=== PATIENT | female | born 1930 | race Caucasian/White ===

== ENCOUNTER 2017-05-12 07:23 | Inpatient (IN) | payer MEDICARE, OTHER, MEDICAID ==
[2017-05-12 08:12] LABS: CHLORIDE,CL 98 mmol/L (101-111); SODIUM,NA 137 mmol/L (135-145)
--- NOTE | 2017-05-12 09:09 | EDM.PDOC ---
ED HPI GENERAL MEDICAL PROBLEM - General Chief Complaint: Neuro Symptoms/Deficits Stated Complaint: IN BY AMBULANCE Time Seen by Provider: 05/12/17 07:40 Source of Information: Reports: Patient, Long-Term Records, RN, RN Notes Reviewed History Limitations: Reports: No Limitations - History of Present Illness INITIAL COMMENTS - FREE TEXT/NARRATIVE: Pt presents to the hospital per [facility] from the [facility] with complaint of a possible stroke. Pt is alert and answering questions. She states she slid to the floor and was unable to get herself up. She states she did not hit her head and denies any pain at this time. She denies headache or nausea. She admits to numbness and tingling in the left arm. Onset: Today, Sudden Onset Date: 05/12/17 Onset Time: 06:15 Back Pain Score (Numeric/FACES): 4 - Related Data Allergies Allergy/AdvReac Type Severity Reaction Status Date / Time Penicillins Allergy Other Verified 05/12/17 07:36 Sulfa (Sulfonamide Allergy Other Verified 05/12/17 07:36 Antibiotics) Home Meds: Home Meds Budesonide/Formoterol Fumarate [Symbicort 160-4.5 Mcg Inhaler] 2 puff INH BID [History] Calcitonin,[place],Synthetic [Miacalcin] 1 spray INH DAILY 05/31/16 [History] Cholecalciferol (Vitamin D3) [Vitamin D3] 2 tab PO DAILY 05/31/16 [History] Diltiazem [Cardizem CD] 1 tab PO DAILY 05/31/16 [History] Furosemide [Furosemide] 20 mg PO DAILY 05/31/16 [History] L Acidophil/B Lactis/B Longum [Florajen3] 1 tab PO DAILY 05/31/16 [History] Metoprolol Succinate [Toprol XL] 1 tab PO DAILY 05/31/16 [History] Nitroglycerin [IJP: Nitroglycerin] 1 tab SL ASDIRECTED PRN 05/31/16 [History] Ondansetron HCl [Zofran] 1 tab PO Q8H PRN 05/31/16 [History] Polyethylene Glycol 3350 17 gm PO DAILY 05/31/16 [History] Sennosides/Docusate Sodium [Senna-Docusate Sodium] 1 tab PO BID 05/31/16 [ History] oxyCODONE HCl/Acetaminophen [oxyCODONE-Acetaminophen 5-325] 1 tab PO BID [History] Acetaminophen 500 mg PO Q8H PRN 06/01/16 [History] Magnesium Citrate [Citrate of Magnesia] 1 bottle PO DAILY PRN 06/01/16 [History] Magnesium Hydroxide [Milk of Magnesia] 30 ml PO DAILY PRN 06/01/16 [History] Propylene Glycol/Peg 400 [Systane 0.3-0.4% Eye Drops] 1 drop EYEBOTH QID [History] ALPRAZolam [Alprazolam] 1 tab PO DAILY 05/12/17 [History] Gabapentin [Neurontin] 300 mg PO TID 05/12/17 [History] Vit C/E/Zn/Coppr/Lutein/Zeaxan [Preservision Areds 2 Softgel] 2 tab PO DAILY 03/19 [History] predniSONE [Prednisone] 5 mg PO DAILY 05/12/17 [History] Past Medical History HEENT History: Reports: Impaired Vision, Macular Degeneration, Other (See Below) Other HEENT History: macular degeneration Cardiovascular History: Reports: Afib Respiratory History: Reports: COPD Other Respiratory History: HX OF LUNG CA Gastrointestinal History: Reports: Chronic Constipation, GERD Other Gastrointestinal History: ANOREXIA 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 History: Reports: Urinary Incontinence Other 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 History: 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, Fibroids, , Spontaneous Musculoskeletal History: Reports: Fracture, Osteoporosis Other Musculoskeletal History: POLYMYALGIZ RHEUMATICA; PELVIC RIM FRACTURE, RIGHT CLAVICLE FRACTURE Neurological History: Reports: None Psychiatric History: Reports: Anxiety Endocrine/Metabolic History: Reports: Osteoporosis, Vitamin D Deficiency Hematologic History: Reports: Anemia, Blood Transfusion(s), Iron Deficiency Immunologic History: Reports: Other (See Below) Other Immunologic History: POLIO Oncologic (Cancer) History: Reports: Lung Other Oncologic History: 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 Dermatologic History: Reports: None - Infectious Disease History Infectious Disease History: Reports: Chicken Pox, Measles, Mumps Other Infectious Disease History: POLIO - Past Surgical History Female Surgical History: Reports: Hysterectomy, Salpingo-Oophorectomy, Tubal Ligation, Other (See Below) Neurological Surgical History: Reports: None Oncologic Surgical History: Reports: Lobectomy Social & Family History - Family History Family Medical History: Unobtainable Cardiac: Reports: CAD, GA Musculoskeletal: Reports: Other (See Below) Other Musculoskeletal Family History: MS - Tobacco Use Smoking Status *Q: Never Smoker Second Hand Smoke Exposure: No - Caffeine Use Caffeine Use: Reports: Coffee Other Caffeine Use: AVERAGE OF 2-3 CUPS DAILY - Recreational Drug Use Recreational Drug Use: No ED ROS GENERAL - Review of Systems Review Of Systems: ROS reveals no pertinent complaints other than HPI. ED EXAM, NEURO - Physical Exam Exam: See Below Exam Limited By: No Limitations General Appearance: Alert, WD/WN, No Apparent Distress Eye Exam: Left Eye: Other (upper lid drooping, normal for patient as stated by family), Bilateral Eye: EOMI (Partial gaze ), PERRL Ears: Normal External Exam, Hearing Grossly Normal Nose: Normal Inspection Throat/Mouth: Normal Inspection, Normal Voice, No Airway Compromise Neck: Normal Inspection, Supple, Non-Tender, Full Range of Motion Respiratory/Chest: No Respiratory Distress, Decreased Breath Sounds (left, partial lobectomy ), Crackles (right) Cardiovascular: Normal Peripheral Pulses, No Edema, No Gallop, No JVD, No Murmur , No Rub, Irregularly Irregular GI/Abdominal: Normal Bowel Sounds, Soft, Non-Tender, No Organomegaly, No Distention, No Abnormal Bruit, No Mass, Pelvis Stable (Female) Exam: Deferred Rectal (Female) Exam: Deferred Neurological: Alert, Normal Mood/Affect, Oriented x 3, Other (numbness and tingling to the left arm, drift to the left arm only) Back Exam: Normal Inspection, Full Range of Motion Extremities: Normal Inspection, Non-Tender, No Pedal Edema, Normal Capillary Refill, Limited Range of Motion (left arm) Psychiatric: Normal Affect, Normal Mood Skin Exam: Warm, Dry, Intact, Normal Color, No Rash Course - Vital Signs Last Recorded V/S: Last Vital Signs Temp 98.5 F 05/12/17 07:35 Pulse 68 05/12/17 07:35 Resp 12 05/12/17 07:35 BP 161/66 H 05/12/17 07:35 Pulse Ox 91 L 05/12/17 07:35 - Orders/Labs/Meds Orders: Active Orders 24 hr Category Date Time Status EKG Documentation Completion [RC] STAT Care 05/12/17 07:42 Active Cervical Spine 2V or 3V [CR] Urgent Exams 05/12/17 08:30 Ordered Hand wo Cont Rt [CT] Urgent Exams 05/12/17 07:34 Stop Req Pelvis Min 3V [CR] Urgent Exams 05/12/17 08:30 Ordered Labs: Laboratory Tests 05/12/17 05/12/17 05/12/17 Range/Units 07:42 07:42 07:42 WBC 7.3 (5.0-10.0) 10^3/uL RBC 4.02 L (4.2-5.4) 10^6/uL Hgb 13.6 D (12.0-16.0) g/dL Hct 41.1 (37.0-47.0) % MCV 102.2 H D (80-100) fL MCH 33.8 (27.0-34.0) pg MCHC 33.1 (33.0-35.0) g/dL Plt Count 148 L (150-450) 10^3/uL Neut % (Auto) 59.5 (42.2-75.2) % Lymph % (Auto) 29.8 (20.5-50.1) % [place] % (Auto) 8.8 H (2-8) % Eos % (Auto) 1.8 (1.0-3.0) % Baso % (Auto) 0.1 (0.0-1.0) % PT 9.9 (9.0-12.0) SEC INR 1.0 (0.9-1.2) APTT (22.0-34.0) SEC Sodium 137 (135-145) mmol/L Potassium 3.4 L (3.6-5.0) mmol/L Chloride 98 L (101-111) mmol/L Carbon Dioxide 28.0 (21.0-31.0) mmol/L Anion Gap 14.4 BUN 15 (7-18) mg/dL Creatinine 0.7 (0.6-1.3) mg/dL Est Cr Clr Drug Dosing 37.79 mL/min Estimated GFR (MDRD) > 60 BUN/Creatinine Ratio 21.42 Glucose 91 (74-105) mg/dL Calcium 9.4 (8.4-10.2) mg/dl Total Bilirubin 0.8 (0.2-1.0) mg/dL AST 27 (10-42) IU/L ALT 16 (10-60) IU/L Alkaline Phosphatase 114 (42-121) IU/L Troponin I < 0.02 (0.00-0.02) ng/ml Total Protein 6.0 L (6.7-8.2) g/dl Albumin 3.9 (3.2-5.5) g/dl Globulin 2.1 Albumin/Globulin Ratio 1.86 Urine Color (YELLOW) Urine Appearance (CLEAR) Urine pH (5.0-9.0) Ur Specific [place] (1.005-1.030) Urine Protein (NEGATIVE) Urine Glucose (UA) (NEGATIVE) Urine Ketones (NEGATIVE) Urine Occult Blood (NEGATIVE) Urine Nitrite (NEGATIVE) Urine Bilirubin (NEGATIVE) Urine Urobilinogen (0.2-1.0) mg/dL Ur Leukocyte Esterase (NEGATIVE) Urine RBC /HPF Urine WBC (0-5/HPF) /HPF Ur Epithelial Cells /HPF Urine Bacteria (0-FEW/HPF) /HPF Urine Mucus /LPF 05/12/17 05/12/17 Range/Units 07:42 07:43 WBC (5.0-10.0) 10^3/uL RBC (4.2-5.4) 10^6/uL Hgb (12.0-16.0) g/dL Hct (37.0-47.0) % MCV (80-100) fL MCH (27.0-34.0) pg MCHC (33.0-35.0) g/dL Plt Count (150-450) 10^3/uL Neut % (Auto) (42.2-75.2) % Lymph % (Auto) (20.5-50.1) % [place] % (Auto) (2-8) % Eos % (Auto) (1.0-3.0) % Baso % (Auto) (0.0-1.0) % PT (9.0-12.0) SEC INR (0.9-1.2) APTT 23.8 (22.0-34.0) SEC Sodium (135-145) mmol/L Potassium (3.6-5.0) mmol/L Chloride (101-111) mmol/L Carbon Dioxide (21.0-31.0) mmol/L Anion Gap BUN (7-18) mg/dL Creatinine (0.6-1.3) mg/dL Est Cr Clr Drug Dosing mL/min Estimated GFR (MDRD) BUN/Creatinine Ratio Glucose (74-105) mg/dL Calcium (8.4-10.2) mg/dl Total Bilirubin (0.2-1.0) mg/dL AST (10-42) IU/L ALT (10-60) IU/L Alkaline Phosphatase (42-121) IU/L Troponin I (0.00-0.02) ng/ml Total Protein (6.7-8.2) g/dl Albumin (3.2-5.5) g/dl Globulin Albumin/Globulin Ratio Urine Color Yellow (YELLOW) Urine Appearance Slightly cloudy (CLEAR) Urine pH 7.0 (5.0-9.0) Ur Specific [place] 1.015 (1.005-1.030) Urine Protein Negative (NEGATIVE) Urine Glucose (UA) Negative (NEGATIVE) Urine Ketones Negative (NEGATIVE) Urine Occult Blood Negative (NEGATIVE) Urine Nitrite Negative (NEGATIVE) Urine Bilirubin Negative (NEGATIVE) Urine Urobilinogen 1.0 (0.2-1.0) mg/dL Ur Leukocyte Esterase Trace H (NEGATIVE) Urine RBC 0-5 /HPF Urine WBC 5-10 H (0-5/HPF) /HPF Ur Epithelial Cells Rare /HPF Urine Bacteria Many H (0-FEW/HPF) /HPF Urine Mucus Not seen /LPF - Radiology Interpretation Free Text/Narrative:: Head CT wo contrast: No acute intracerebral abnormality or injury. No acute ischemic infarct or intracerebral bleed. Mild frontoparietal and frontotemporal cerebral atrophy with patchy periventricular leukomalacia in both cerebral hemispheres consistent with chronic underlying small vessel ischemic disease. See rad report Departure - Departure Time of Disposition: 09:18 Disposition: Refer to Observation Condition: Fair Clinical Impression: TIA (transient ischemic attack) Qualifiers: Transient cerebral ischemia type: unspecified Qualified Code(s): G45.9 - Transient cerebral ischemic attack, unspecified - Discharge Information - My Orders Last 24 Hours: My Active Orders 05/12/17 07:34 Hand wo Cont Rt [CT] Urgent 05/12/17 07:42 EKG Documentation Completion [RC] STAT 05/12/17 08:30 Cervical Spine 2V or 3V [CR] Urgent Pelvis Min 3V [CR] Urgent - Assessment/Plan Last 24 Hours: My Active Orders 05/12/17 07:34 Hand wo Cont Rt [CT] Urgent 05/12/17 07:42 EKG Documentation Completion [RC] STAT 05/12/17 08:30 Cervical Spine 2V or 3V [CR] Urgent Pelvis Min 3V [CR] Urgent
[2017-05-12] MEDS ORDERED: Acetaminophen 325 MG Tab PO PRN (09:58)
[2017-05-12] MEDS ORDERED: Magnesium Hydroxide 400 MG/5 ML Susp 30 ML Cup PO PRN (10:03)
[2017-05-12] MEDS ORDERED: Ondansetron 4 MG Tab.DIS PO PRN (10:03)
[2017-05-12] MEDS ORDERED: Magnesium Citrate Solution 296 ML Bottle PO PRN (10:03)
[2017-05-12] MEDS ORDERED: Nitroglycerin 0.4 MG Tab.SL SL PRN (10:23)
[2017-05-12] MEDS ORDERED: Levofloxacin/Dextrose 5%-Water 750 MG in Premix Bag 1 BAG IV ONE (12:00)
[2017-05-12] MEDS: Ondansetron 4 MG Tab.DIS PO PRN (13:28)
[2017-05-12] MEDS: Gabapentin 300 MG Cap PO SCH ×2 (13:29→21:23)
[2017-05-12] MEDS: Polyvinyl Alcohol 1.4% Ophth Soln 15 ML Bottle EYEBOTH SCH ×3 (13:30→21:22)
--- NOTE | 2017-05-12 14:13 | HP ---
CHIEF COMPLAINT: "I had a fall at the assisted living." HISTORY OF PRESENTING ILLNESS: Mrs. Nikole Jones is an 86-year-old female with medical history significant for hypertension; hyperlipidemia; chronic obstructive pulmonary disease; atrial fibrillation, on chronic anticoagulation with Coumadin; polymyalgia rheumatica; vasospastic angina; presents to the ER after having a fall at the assisted living facility. At this time, the patient claims that she was absolutely normal at her baseline function around 6:00 a.m. when the nursing staff came and gave her some pills, after that she did not know what happened, but she slipped and fell onto the floor. She does not remember the events which led to the fall, but after realizing that she was on the floor, she tried to get up on her own, but she could not get up. She felt weak on the left side of the body and called for help and nursing staff came and helped her. EMS was called, and when the EMS went to pick her up, she was noted to have some drooping of the face on the left side and also some mild weakness on the left upper extremity and was brought to the emergency room. After coming to the ER, the patient did not have any further weakness. She had a CT scan of the head which was within normal limits and also had cervical spine x-ray and pelvic x-ray. She denies any chest pains at this time. No shortness of breath. She denied any fevers or chills in the last few days. No nausea, vomiting, or diarrhea in the last few days. No complaints of hematemesis, hematochezia, or melenic stools in the last few days. No cough with sputum in the last few days. No complaints of chest pain. No complaints of shortness of breath at this time. The patient claims that maybe she slipped and fell, rather than having a fall. She denied any similar complaints in the past. While in the room, she is able to walk to the bathroom without any difficulty. The patient denied any history of chest pains on exertion, but has mild dyspnea on exertion. No history of orthopnea or paroxysmal nocturnal dyspnea. The patient denied any history of hematemesis, hematochezia, or melenic stools. Normal bowel and bladder habits otherwise. REVIEW OF SYSTEMS: A complete review of system including skin, ear, nose, and throat, cardiovascular system, respiratory system, gastrointestinal system, genitourinary system, hematology, oncology, neurology, allergy, immunology, constitutional were all evaluated and were negative except for the above-said notes. PAST MEDICAL HISTORY: Significant for: 1. Hypertension. 2. Hyperlipidemia. 3. Chronic obstructive pulmonary disease. 4. Atrial fibrillation, paroxysmal. 5. Chronic anticoagulation. 6. Polymyalgia rheumatica. 7. Vasospastic angina. 8. Anxiety. PAST SURGICAL HISTORY: Significant for: 1. Hysterectomy. 2. Lung lobectomy. 3. Thoracoscopy. 4. Tonsillectomy. 5. Adenoidectomy. 6. Vaginal repair. FAMILY HISTORY: The patient claims that her mom and dad are . No significant family history. SOCIAL HISTORY: The patient denied any history of smoking tobacco. History of occasional alcohol intake. ALLERGIC HISTORY: Noted to have allergies to penicillin and sulfa which cause rash and hives. HOME MEDICATIONS: 1. Pradaxa 75 mg, 2 times a day. 2. Xanax 0.25 mg, 2 times a day as needed for anxiety. 3. Omeprazole 20 mg, 2 times daily. 4. Symbicort inhalation daily. 5. Vitamin D3 capsule daily. PHYSICAL EXAMINATION: Vital Signs: Temperature of 98.5, pulse of 68, blood pressure of 161/66, respiratory rate of 12, saturating at 97% on room air. General Appearance: The patient is well oriented to time, place, and person. Follows commands spontaneously. Cardiovascular System: S1 and S2 heard with normal intensity. Grade 3/6 systolic murmur appreciated. No gallops. Respiratory System: Clear to auscultation bilaterally. No wheeze. No crepitations. Abdomen: Soft. Bowel sounds positive. Nontender. No rigidity. Extremities: No edema in bilateral lower extremities. Neurology: No gross focal neurological deficits. Power of 5/5 in all extremities. Reflexes within normal limits. Pupils equally reactive to light. Extraocular movements stable. The patient has macular degeneration to the left eye. LABORATORY DATA: WBC 7.3, hemoglobin 13.6, hematocrit 41.1, platelet count 148. INR 1. Sodium 137, potassium 3.4, chloride 98, bicarb 28, BUN 15, creatinine 0.7, glucose 91, AST 27, ALT 16, alkaline phosphatase 114. Urinalysis: Negative for nitrites. Trace leukocytes, 5 to 10 wbc's, many bacteria. CT scan of the head did not show any acute pathology except for chronic small vessel ischemic changes. ASSESSMENT: 1. Syncope and collapse. 2. Possible urinary tract infection. 3. Mild weakness on the left side which has resolved at this time. Unsure if the patient had any transient ischemic attack. 4. Paroxysmal atrial fibrillation. 5. Chronic anticoagulation with Pradaxa. 6. Hypertension. 7. Chronic obstructive pulmonary disease. 8. History of anxiety. PLAN: 1. Syncopal episode: The patient presents with a syncopal episode and collapse. Exact etiology not clear. The patient claims that she slipped and fell, but given her chronic atrial fibrillation, the patient will be monitored on the Telemetry Unit. We will get serial cardiac enzymes. She might benefit from getting a 2D echocardiogram and carotid Doppler. She could get this as an outpatient also as there is no emergency need for this studies to be done right away. We will closely follow. If symptoms persist, then one might consider getting them inpatient [facility]. We will have Physical Therapy and Occupational Therapy evaluate and treat the patient in a.m. the patient will be encouraged to ambulate around with assistance and have her on fall precautions while in the hospital. 2. Hypertension, uncontrolled: The patient noted to have elevated blood pressure. The patient is not on any antihypertensive medications for now. We will closely follow and may be initiated beta-radha if needed as she has underlying atrial fibrillation. 3. Chronic obstructive pulmonary disease, remains stable: The patient is noted to have Symbicort inhalation treatment. Continue the same. 4. DVT prophylaxis: The patient is currently on Pradaxa. Continue the same. 5. Possible urinary tract infection. The patient is noted to have trace leukocyte esterase with many bacteria and 5 to 10 wbc's. We will start her on IV ceftriaxone. She is allergic to penicillin and sulfa, so one might consider having her on Cipro at this time. We will obtain urine culture and closely follow the patient. 6. We will check her orthostatic vitals to make sure she is not dehydrating and leading to this fall. 7. Code status: The patient wants to be DNR/DNI. 8. Discussed with ER physician regarding the plan of care. Reviewed the labs and medications. Reviewed the old charts. [facility] /[id number]
[2017-05-12] MEDS ORDERED: Sodium Chloride 0.9% 1,000 ML IV ONE (16:34)
[2017-05-12] MEDS: Sodium Chloride 0.9% 10 ML Syringe FLUSH PRN (17:11)
[2017-05-12] MEDS: Formoterol/Mometasone 200-5 MCG 8.8 GM Inhaler IH SCH (21:21)
[2017-05-12] MEDS: Acetaminophen/oxyCODONE 325-5 MG Tab PO SCH (21:23)
[2017-05-12] MEDS: Acetaminophen 500 MG Tab PO PRN (22:07)
[2017-05-12] MEDS ORDERED: ALPRAZolam 0.5 MG Tab PO SCH (23:45)
[2017-05-13] MEDS ORDERED: ALPRAZolam 0.5 MG Tab PO SCH
[2017-05-13 07:07] LABS: CHLORIDE,CL 100 mmol/L (101-111); SODIUM,NA 137 mmol/L (135-145)
[2017-05-13] MEDS ORDERED: predniSONE 5 MG Tab PO SCH (09:00)
[2017-05-13] MEDS ORDERED: ACIDOPHIL PO SCH (09:00)
[2017-05-13] MEDS ORDERED: B LONGUM PO SCH (09:00)
[2017-05-13] MEDS ORDERED: Furosemide 20 MG Tab PO SCH (09:00)
[2017-05-13] MEDS ORDERED: B LACTIS PO SCH (09:00)
[2017-05-13] MEDS: Gabapentin 300 MG Cap PO SCH ×3 (09:20→20:43)
[2017-05-13] MEDS: Metoprolol Succinate 50 MG Tab.ER PO SCH (09:20)
[2017-05-13] MEDS: Acetaminophen/oxyCODONE 325-5 MG Tab PO SCH ×2 (09:20→20:43)
[2017-05-13] MEDS: Diltiazem 240 MG Cap.CD PO SCH (09:20)
[2017-05-13] MEDS: Lutein/Minerals/Vit A,C & E Tab PO SCH (09:20)
[2017-05-13] MEDS: Calcitonin (Salmon) Nasal Spray 3.7 ML Bottle NAS SCH (09:22)
[2017-05-13] MEDS: Polyvinyl Alcohol 1.4% Ophth Soln 15 ML Bottle EYEBOTH SCH ×4 (09:23→20:43)
[2017-05-13] MEDS: Formoterol/Mometasone 200-5 MCG 8.8 GM Inhaler IH SCH ×3 (09:23→20:38)
[2017-05-13] MEDS: Polyethylene Glycol 3350 Powder 17 GM Packet PO SCH (09:24)
[2017-05-13] MEDS: Ondansetron 4 MG Tab.DIS PO PRN ×2 (09:40→18:17)
--- NOTE | 2017-05-13 14:56 | PN ---
DATE: 05/13/2017 SUBJECTIVE: Mrs. Nikole Blanco is an 86-year-old female with medical history significant for hypertension, hyperlipidemia, chronic obstructive pulmonary disease, atrial fibrillation, on chronic anticoagulation with Coumadin and polymyalgia rheumatica. Admitted with having a fall at assisted living facility. For the last 24 hours, the patient had orthostatic vitals drawn, which were positive and the patient was getting hypotensive on standing up suggestive of possible dehydration. She was treated with IV fluids overnight. She was also noted to have possible urinary tract infection for which she was given Levaquin. She complains of increasing weakness and tiredness. She denies any chest pain. No shortness of breath. No abdominal pain. No nausea. No vomiting. No diarrhea. She continues to feel weak and tired. REVIEW OF SYSTEMS: Cardiovascular, respiratory, gastrointestinal, neurology, and constitutional were all evaluated. PHYSICAL EXAMINATION: Vital Signs: Temperature of 98.8, pulse of 76, respiratory rate of 20, blood pressure of 166/69, and saturating at 95% on 2 L of oxygen. General Appearance: The patient is well oriented to time, place, and person. Follows commands spontaneously. Cardiovascular System: S1, S2 heard with normal intensity. No gallops. Respiratory System: Clear to auscultation bilaterally. No wheeze. No crepitations. Abdomen: Soft. Bowel sounds positive. Nontender. No rigidity. Extremities: No edema in bilateral lower extremities. Neurology: No gross focal neurological deficit. MEDICATIONS: 1. Tylenol 500 mg every 8 hours as needed for pain. 2. Xanax 0.5 mg at bedtime. 3. Vitamin D3 of 4000 units daily. 4. Diltiazem 240 mg daily. 5. Lasix 20 mg daily. 6. Neurontin 300 mg 3 times a day. 7. Milk of magnesia 30 mL daily as needed for constipation. 8. Toprol-XL 50 mg daily. 9. Dulera twice a day. 10.Percocet 5/325 mg twice a day. 11.Prednisone 5 mg daily. 12.Senokot 1 tablet twice a day. LABORATORY DATA: WBC 6.7, hemoglobin 13.7, hematocrit 41.6, and platelet count 132. Sodium 137, potassium 3.6, chloride 100, bicarb 28, BUN 10, creatinine 0.6, and glucose 83. ASSESSMENT: 1. Syncope and collapse. 2. Possible urinary tract infection. 3. Paroxysmal atrial fibrillation. 4. Generalized weakness. 5. Chronic anticoagulation with Pradaxa. 6. Hypertension. 7. Chronic obstructive pulmonary disease. 8. History of anxiety. PLAN: 1. Syncopal episode. The patient was admitted with syncope and collapse. She was noted to be orthostatic positive with low blood pressure. She was treated with IV fluids which have improved her blood pressure. We will recheck an orthostatic blood pressure today and hydrate her as needed. 2. Generalized weakness. The patient continues to feel weak and tired. Unsure if this is resulting from an underlying urinary tract infection. She was given IV Levaquin, we will continue the same. We will follow the blood culture and urine culture and titrate the antibiotics. 3. Hypertension. The patient's blood pressure seems to be in acceptable range. Continue with current antihypertensive medication. Try to avoid any hypotensive episodes. 4. Chronic anticoagulation. Continue the Pradaxa. 5. Chronic obstructive pulmonary disease, remains stable. No wheeze noted on the lung exam. Continue current inhalation treatment. We will have her on incentive spirometer and flutter valve as needed. 6. We will have Physical Therapy and Occupational Therapy evaluate and treat the patient. 7. As the patient is requiring IV antibiotics, IV fluids, and she is still feeling weak and tired, we will change her to inpatient service and we will closely follow with physical therapy and occupational therapy. [facility] /[id number]
--- NOTE | 2017-05-13 15:15 | CR ---
CLINICAL HISTORY: 86-year-old female with cough. INTERPRETATION: Apparent new paratracheal density on the right since 17 January 2016 exam most probabl y reflects patient rotation, i.e., technique but if it all possible recommend repeat upright PA chest as a precaution. Normal cardiac silhouette without cephalization of vascular flow, new signs of alveolar edema or depe ndent pleural effusion. (Surgical clips in the region of the "aortopulmonary window"). Scoliosis and arthritic changes of the spine. Chronic mild bronchial inflammation ("cuffing"). No new lung mass, hilar lymphadenopathy or focal lob ar pneumonia.
--- NOTE | 2017-05-13 17:31 | US ---
Clinical history: 86-year-old female with dizziness, syncope and left-sided weakness. Rule out caroti d artery stenosis. Interpretation: Echogenic atheromatous plaque scattered around the carotid bulbs and into the origin of the internal carotid arteries bilaterally but no hemodynamically significant or surgical stenosis documented by ab normal flow either internal or external carotid artery. Normal antegrade vertebral artery flow present bilaterally. Peak systolic flow velocity right common carotid artery 79 cm/s; right internal carotid artery 82 cm/ s; right external carotid artery 89 cm/s. IC/CC ratio on the right 1.0. Peak systolic flow velocity left common carotid artery 101 cm/s; left internal carotid artery 70 cm/s ; and left external carotid artery 130 cm/s. IC/CC ratio on the left 0.7. CONCLUSION: Atheromatous plaque but no evidence of surgical stenosis.
[2017-05-13] MEDS: Acetaminophen 500 MG Tab PO PRN (19:35)
[2017-05-13] MEDS: ALPRAZolam 0.5 MG Tab PO SCH (20:45)
[2017-05-13] MEDS: Sodium Chloride 0.9% 10 ML Syringe FLUSH PRN (20:52)
[2017-05-14 06:56] LABS: CHLORIDE,CL 96 mmol/L (101-111); SODIUM,NA 135 mmol/L (135-145)
[2017-05-14] MEDS: predniSONE 10 MG Tab PO SCH (08:30)
[2017-05-14] MEDS: Ondansetron 4 MG Tab.DIS PO PRN (08:31)
[2017-05-14] MEDS: Metoprolol Succinate 50 MG Tab.ER PO SCH (08:31)
[2017-05-14] MEDS: Acetaminophen/oxyCODONE 325-5 MG Tab PO SCH ×2 (08:31→20:30)
[2017-05-14] MEDS: Diltiazem 240 MG Cap.CD PO SCH (08:31)
[2017-05-14] MEDS: Gabapentin 300 MG Cap PO SCH ×3 (08:32→20:30)
[2017-05-14] MEDS: Polyvinyl Alcohol 1.4% Ophth Soln 15 ML Bottle EYEBOTH SCH ×4 (08:32→20:27)
[2017-05-14] MEDS: Lutein/Minerals/Vit A,C & E Tab PO SCH (08:32)
[2017-05-14] MEDS: Formoterol/Mometasone 200-5 MCG 8.8 GM Inhaler IH SCH ×2 (08:32→20:27)
[2017-05-14] MEDS: Calcitonin (Salmon) Nasal Spray 3.7 ML Bottle NAS SCH (08:32)
[2017-05-14] MEDS: Polyethylene Glycol 3350 Powder 17 GM Packet PO SCH (08:33)
[2017-05-14] MEDS: Levofloxacin/Dextrose 5%-Water 750 MG in Premix Bag 1 BAG IV SCH (08:37)
[2017-05-14] MEDS ORDERED: Sodium Chloride 0.9% 1,000 ML IV SCH (12:00)
--- NOTE | 2017-05-14 12:33 | PN ---
DATE: 05/14/2017 SUBJECTIVE: Mrs. Karen Agustin is an 86-year-old female with a medical history significant for hypertension; hyperlipidemia; chronic obstructive pulmonary disease; atrial fibrillation, on chronic anticoagulation with Coumadin; and polymyalgia rheumatica, admitted with having a fall at assisted living facility. For the last 24 hours, the patient continues to complain of increasing weakness and tiredness. She is unable to ambulate well without any help. She denies any chest pains. No shortness of breath. Complains of feeling nauseated at times decreasing her oral intake. Denies any abdominal pain. She had a good bowel movement yesterday. She received some IV fluids yesterday. She denies any chest pains or headache. Complains of mild dizziness upon ambulation. REVIEW OF SYSTEMS: Cardiovascular, respiratory, gastrointestinal, neurology, constitutional were all evaluated. PHYSICAL EXAMINATION: Vital Signs: Temperature of 97.8, pulse of 69, blood pressure 135/78, respiratory rate of 20, and saturating at 94% on 2 L of oxygen. General Appearance: The patient is alert and oriented to time, place, and person. Follows commands spontaneously. Cardiovascular system: S1 and S2 heard with normal intensity. No gallops. Respiratory System: Clear to auscultation bilaterally. No wheeze. No crepitations. Abdomen: Soft. Bowel sounds positive. Nontender. No rigidity. Extremities: No edema in the bilateral lower extremities. Neurology: No gross focal neurological deficit. MEDICATIONS: Reviewed. Continue with: 1. Tylenol Extra Strength q.8 hours as needed for pain. 2. Xanax 0.5 mg at bedtime as needed. 3. Vitamin D3 of 4000 units daily. 4. Diltiazem 240 mg daily. 5. Neurontin 300 mg three times a day. 6. Levaquin every 48 hours. 7. Milk of magnesia 30 mL as needed for constipation. 8. Toprol-XL 50 mg daily. 9. MiraLax 17 g p.o. daily. 10.Prednisone 10 mg daily. LABORATORY DATA: Sodium 135, potassium 3.7, chloride 96, bicarb 28. BUN 15, creatinine 0.6, glucose 84. ASSESSMENT: 1. Generalized weakness and debility. 2. Possible urinary tract infection. 3. Syncopal episode. 4. Paroxysmal atrial fibrillation. 5. Chronic anticoagulation with Pradaxa. 6. Hypertension. 7. Chronic obstructive pulmonary disease. 8. History of anxiety. PLAN: 1. Generalized weakness. The patient complains of increasing weakness and tiredness. She was orthostatic hypotensive, so we had to give her some IV fluids. We will give her another 500 mL of normal saline today; see if that helps with her weakness. We will also have her on Ensure as she has poor oral intake and closely follow the patient. 2. Syncopal episode. The patient complains of mild dizziness upon ambulation. This could be resulting from mild dehydration. We will continue with IV fluids for now. 3. Urinary tract infection. The patient noted to have UTI at the time of admission. She is currently on IV Levaquin. Follow with the culture reports. Titrate the antibiotics. 4. Chronic obstructive pulmonary disease, remains stable. Continue with current inhalation treatment. The patient will be encouraged to use incentive spirometer. 5. Polymyalgia rheumatica. The patient has been on chronic steroid therapy. She usually takes 5 mg. We increased that to 10 mg. She was complaining of increasing weakness and tiredness. Continue with current dose of prednisone. 6. Continue with physical therapy and occupational therapy. 7. Patient was on Pradaxa in the past. but review of the chart shows, she is not on any anticoagulation as per Assisted living facility. [facility] /[id number] MTDD
[2017-05-14] MEDS: [UNRECOGNIZED DRUG - REMARK] PO SCH ×2 (13:16→13:17)
[2017-05-14] MEDS: ALPRAZolam 0.5 MG Tab PO SCH (20:32)
[2017-05-15] MEDS: Sodium Chloride 0.9% 10 ML Syringe FLUSH PRN ×2 (01:49→21:56)
[2017-05-15] MEDS: Acetaminophen 500 MG Tab PO PRN (06:35)
[2017-05-15] MEDS: Polyethylene Glycol 3350 Powder 17 GM Packet PO SCH (09:12)
[2017-05-15] MEDS: Lutein/Minerals/Vit A,C & E Tab PO SCH (09:13)
[2017-05-15] MEDS: Diltiazem 240 MG Cap.CD PO SCH (09:13)
[2017-05-15] MEDS: predniSONE 10 MG Tab PO SCH (09:14)
[2017-05-15] MEDS: Metoprolol Succinate 50 MG Tab.ER PO SCH (09:14)
[2017-05-15] MEDS: Acetaminophen/oxyCODONE 325-5 MG Tab PO SCH ×2 (09:15→20:42)
[2017-05-15] MEDS: [UNRECOGNIZED DRUG - REMARK] PO SCH (09:16)
[2017-05-15] MEDS: Formoterol/Mometasone 200-5 MCG 8.8 GM Inhaler IH SCH ×2 (09:17→20:41)
[2017-05-15] MEDS: Gabapentin 300 MG Cap PO SCH ×3 (09:17→20:42)
[2017-05-15] MEDS: Polyvinyl Alcohol 1.4% Ophth Soln 15 ML Bottle EYEBOTH SCH ×4 (09:17→20:42)
[2017-05-15] MEDS: Calcitonin (Salmon) Nasal Spray 3.7 ML Bottle NAS SCH (09:24)
--- NOTE | 2017-05-15 12:46 | PN ---
DATE: 05/15/2017 SUBJECTIVE: Mrs. Karen Agustin is an 86-year-old female with medical history significant for hypertension, hyperlipidemia, chronic obstructive pulmonary disease, atrial fibrillation, chronic anticoagulation with Coumadin, polymyalgia rheumatica, admitted with having falls. For the last 24 hours, the patient continues to complain of increasing weakness and tiredness. She was evaluated by Physical Therapy and Occupational Therapy. She was prescribed Ensure Clear, but still continues to feel weak. She denies any chest pain. No shortness of breath. No abdominal pain. No nausea. No vomiting. No diarrhea. REVIEW OF SYSTEMS: Cardiovascular, Respiratory, Gastrointestinal, Neurology, Constitutional were all evaluated. PHYSICAL EXAMINATION: Vitals Signs: Temperature of 97.9, pulse of 65, blood pressure of 138/49, respiratory rate of 20, saturating at 91% on 1 L of oxygen. General Appearance: The patient is well oriented to time, place, and person. Follows commands spontaneously. Cardiovascular System: S1 and S2 heard with normal intensity. No gallops. Respiratory System: Clear to auscultation bilaterally. No wheeze. No crepitations. Abdomen: Soft. Bowel sounds positive. Nontender. No rigidity. No guarding. No rebound tenderness. Extremities: No edema in bilateral lower extremities. Neurologic: No gross focal neurological deficits. MEDICATIONS: Reviewed. Continue with: 1. Tylenol 500 mg every 8 hours as needed for pain. 2. Xanax 0.5 mg at bedtime. 3. Diltiazem 240 mg daily. 4. Neurontin 300 mg, 3 times a day. 5. Levofloxacin 750 mg every 48 hours. 6. Milk of magnesia as needed. 7. Toprol-XL 50 mg daily. 8. Dulera inhalation twice a day. 9. Nitroglycerin 0.4 mg sublingual as needed for chest pain. 10.Percocet 5/325 mg twice a day. 11.Prednisone 10 mg daily. LABORATORY DATA: No new labs ordered for today. We will order for a CBC and a BMP in a.m. ASSESSMENT: 1. Generalized weakness and generalized debility. 2. Possible urinary tract infection. 3. Presyncopal episode. 4. Paroxysmal atrial fibrillation. 5. Hypertension. 6. Chronic obstructive pulmonary disease. 7. History of anxiety. PLAN: 1. Generalized weakness: The patient continues to have generalized weakness. Initially, she was noted to have possible UTI. She is currently on IV antibiotics. She also received IV fluids, but continues to have this weakness. We will continue with PT/OT. We will also prescribe Ensure and we will closely follow. We will check her orthostatics today to see if she needs more IV fluids. 2. Syncopal episode: The patient was admitted with syncopal episode. She was noted to have orthostatic hypotension, suggestive of possible dehydration, requiring IV fluids. After which, she did not have any further syncopal episode, but we will check orthostatics again to see if she needs more IV fluids today. 3. Urinary tract infection: She is currently on IV Levaquin, awaiting for culture report. Continue current antibiotics. 4. Chronic obstructive pulmonary disease, remains stable: Continue current inhalation treatment. 5. Polymyalgia rheumatica: She has been on chronic steroid therapy. We have increased the prednisone to 10 mg on this admission. Continue the same. 6. Continue PT/OT. 7. Atrial fibrillation: The patient was on Pradaxa in the past, but currently not on any anticoagulation secondary to her frequent falls and increasing the risk for intracranial bleed, so we will hold off any anticoagulation for now. She is not on any Plavix at this time. [facility] /[id number]
[2017-05-15] MEDS: ALPRAZolam 0.5 MG Tab PO SCH (20:42)
[2017-05-16 07:08] LABS: CHLORIDE,CL 100 mmol/L (101-111); SODIUM,NA 136 mmol/L (135-145)
[2017-05-16] MEDS: Metoprolol Succinate 50 MG Tab.ER PO SCH (08:56)
[2017-05-16] MEDS: Gabapentin 300 MG Cap PO SCH ×2 (08:56→13:28)
[2017-05-16] MEDS: Diltiazem 240 MG Cap.CD PO SCH (08:57)
[2017-05-16] MEDS: predniSONE 10 MG Tab PO SCH (08:57)
[2017-05-16] MEDS: Polyvinyl Alcohol 1.4% Ophth Soln 15 ML Bottle EYEBOTH SCH ×2 (08:57→13:28)
[2017-05-16] MEDS: Calcitonin (Salmon) Nasal Spray 3.7 ML Bottle NAS SCH (08:57)
[2017-05-16] MEDS: Lutein/Minerals/Vit A,C & E Tab PO SCH (08:57)
[2017-05-16] MEDS: [UNRECOGNIZED DRUG - REMARK] PO SCH (08:58)
[2017-05-16] MEDS: Acetaminophen/oxyCODONE 325-5 MG Tab PO SCH (08:59)
[2017-05-16] MEDS: Polyethylene Glycol 3350 Powder 17 GM Packet PO SCH (09:00)
[2017-05-16] MEDS: Formoterol/Mometasone 200-5 MCG 8.8 GM Inhaler IH SCH (09:00)
[2017-05-16] MEDS: Sodium Chloride 0.9% 10 ML Syringe FLUSH PRN (09:11)
[2017-05-16] MEDS: Levofloxacin/Dextrose 5%-Water 750 MG in Premix Bag 1 BAG IV SCH (09:12)
[2017-05-16 12:21] VITALS: BP 152/79
[2017-05-16] MEDS: Acetaminophen 500 MG Tab PO PRN (13:27)
--- NOTE | 2017-05-16 13:45 | PCM.DCSUM1 ---
Discharge Summary - Hospital Course Free Text/Narrative:: 86 y/o female with PMH of HTN, COPD, A-fib on Pradaxa, polymyalgia rheumatica, but the spastic angina who presented to the hospital from assisted living facility after falling there. Prior to the fall she was in here usual health status. She remembers she slipped and fell onto the floor but does not remember how and why. She was weak and not able to get up. She mostly felt weak on the left side. She called for nursing staff for help. Nursing staff called EMS who brought her to the hospital. It was reported that she had some left facial drooping and left upper extremity weakness. CT of head on admission did not show acute abnormalities. Cervical spine x-ray and pelvic x-ray were unremarkable. Patient did not have any other symptoms. She denies fever, chills , chest pain, shortness breath, nausea, vomiting, diarrhea, bleeding, any other symptoms or concerns. Her admission physical exam reported no gross focal neurological deficit. Serial cardiac enzymes were unremarkable. Carotid ultrasound showed atheromatous plaque but no evidence of surgical stenosis. Echocardiogram is ordered but not reported yet. Chest x-ray was unremarkable. Admission Laboratory data reported previously 7.3K. Hemoglobin 13.6. Potassium 3.4. Creatinine 0.7. Troponins 0.03. LFTs are unremarkable. UA reported trace leukocyte esterase and 5-10 WBCs with many bacteria. No urine or blood cultures were done. She was started on Levaquin IV. During hospitalization patient main complaint was generalized weakness. During hospitalization she did not have any acute events. Overnight patient denies fever, chills, nausea, vomiting, chest pain, shortness breath, abdominal pain, diarrhea, hospice, insulin, black stool , unilateral weakness/numbness/tingling, discussed pain, difficulty swallowing, any other symptoms or concern. Patient is being followed by physical therapy. Patient would benefit from further physical therapy and addition to swing bed. Will change her Levaquin from IV to oral. Admission diagnoses: Syncope and collapse Possible urinary tract infection Possible transient ischemic attack Proximal atrial fibrillation Chronic anti-coagulation on Pradaxa Hypertension COPD Discharge diagnoses: Fall at assisted living, possible syncope Possible urinary tract infection Possible transient ischemic attack Chronic Proximal atrial fibrillation Chronic anti-coagulation on Pradaxa Chronic essential Hypertension COPD - Discharge Data Discharge Date: 05/16/17 Discharge Disposition: DC/Tfer W/I Hosp To Swing 61 Condition: Fair - Discharge Diagnosis/Problem(s) (1) Fall SNOMED Code(s): 1684556 ICD Code: W19.XXXA - UNSPECIFIED FALL, INITIAL ENCOUNTER Status: Acute Current Visit: No Qualifiers: Encounter type: initial encounter Qualified Code(s): W19.XXXA - Unspecified fall, initial encounter - Discharge Plan Home Medications: Home Meds Budesonide/Formoterol Fumarate [Symbicort 160-4.5 Mcg Inhaler] 2 puff INH BID [History] Calcitonin,[place],Synthetic [Miacalcin] 1 spray INH DAILY 05/31/16 [History] Cholecalciferol (Vitamin D3) [Vitamin D3] 2 tab PO DAILY 05/31/16 [History] Diltiazem [Cardizem CD] 1 tab PO DAILY 05/31/16 [History] Furosemide 20 mg PO DAILY 05/31/16 [History] L Acidophil/B Lactis/B Longum [Florajen3] 1 tab PO DAILY 05/31/16 [History] Metoprolol Succinate [Toprol XL] 1 tab PO DAILY 05/31/16 [History] Nitroglycerin [IJP: Nitroglycerin] 1 tab SL ASDIRECTED PRN 05/31/16 [History] Ondansetron HCl [Zofran] 1 tab PO Q8H PRN 05/31/16 [History] Polyethylene Glycol 3350 17 gm PO DAILY 05/31/16 [History] Sennosides/Docusate Sodium [Senna-Docusate Sodium] 1 tab PO BID 05/31/16 [ History] oxyCODONE HCl/Acetaminophen [oxyCODONE-Acetaminophen 5-325] 2 tab PO Q6H [History] Acetaminophen 500 mg PO Q8H PRN 06/01/16 [History] Magnesium Citrate [Citrate of Magnesia] 1 bottle PO DAILY PRN 06/01/16 [History] Magnesium Hydroxide [Milk of Magnesia] 30 ml PO DAILY PRN 06/01/16 [History] Propylene Glycol/Peg 400 [Systane 0.3-0.4% Eye Drops] 1 drop EYEBOTH QID [History] ALPRAZolam [Alprazolam] 1 tab PO DAILY 05/12/17 [History] Gabapentin [Neurontin] 300 mg PO TID 05/12/17 [History] Vit C/E/Zn/Coppr/Lutein/Zeaxan [Preservision Areds 2 Softgel] 2 tab PO DAILY 03/19 [History] predniSONE [Prednisone] 5 mg PO DAILY 05/12/17 [History] - General Info Date of Service: 05/16/17 - Review of Systems General: Reports: No Symptoms HEENT: Reports: No Symptoms Pulmonary: Reports: No Symptoms Cardiovascular: Reports: No Symptoms Gastrointestinal: Reports: No Symptoms 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: Reports: No Symptoms Musculoskeletal: Reports: No Symptoms Skin: Reports: No Symptoms Neurological: Reports: No Symptoms Psychiatric: Reports: No Symptoms - Patient Data Vitals - Most Recent: Last Vital Signs Temp 36.9 C 05/16/17 11:00 Pulse 66 05/16/17 11:00 Resp 20 05/16/17 11:00 BP 152/79 H 05/16/17 11:00 Pulse Ox 94 L 05/16/17 11:00 Orthostatic Blood Pressure [ 136/87 Standing] Orthostatic Blood Pressure [ 147/78 Sitting] Orthostatic Blood Pressure [ 147/91 Supine] Weight - Most Recent: 41.277 kg I&O - Last 24 hours: Intake & Output 05/15/17 05/16/17 05/16/17 22:59 06:59 14:59 Intake Total 390 400 400 Balance 390 400 400 Lab Results - Last 24 hrs: Laboratory Results - last 24 hr 05/16/17 05/16/17 Range/Units 06:25 06:25 WBC 7.0 (5.0-10.0) 10^3/uL RBC 3.77 L (4.2-5.4) 10^6/uL Hgb 12.7 (12.0-16.0) g/dL Hct 37.7 (37.0-47.0) % MCV 100.0 D (80-100) fL MCH 33.7 (27.0-34.0) pg MCHC 33.7 (33.0-35.0) g/dL Plt Count 150 (150-450) 10^3/uL Sodium 136 (135-145) mmol/L Potassium 3.8 (3.6-5.0) mmol/L Chloride 100 L (101-111) mmol/L Carbon Dioxide 27.0 (21.0-31.0) mmol/L Anion Gap 12.8 BUN 19 H (7-18) mg/dL Creatinine 0.6 (0.6-1.3) mg/dL Est Cr Clr Drug Dosing 44.37 mL/min Estimated GFR (MDRD) > 60 Glucose 84 (74-105) mg/dL Calcium 9.5 (8.4-10.2) mg/dl Med Orders - Current: Current Medications Acetaminophen (Tylenol Extra Strength) 500 mg PO Q8H PRN PRN Reason: Pain Last Admin: 05/15/17 06:35 Dose: 500 mg Alprazolam (Xanax) 0.5 mg PO BEDTIME [facility] Last Admin: 05/15/17 20:42 Dose: 0.5 mg Artificial Tears (Liquitears 1.4% Ophth Soln) 0 ml EYEBOTH QID [facility] Last Admin: 05/16/17 08:57 Dose: 1 drop Calcitonin [place] (Miacalcin Nasal [place]) 0 ml ANA ROSA DAILY [facility] Last Admin: 05/16/17 08:57 Dose: 1 spray Diltiazem HCl (Cardizem Cd) 240 mg PO DAILY [facility] Last Admin: 05/16/17 08:57 Dose: 240 mg Gabapentin (Neurontin) 300 mg PO TID [facility] Last Admin: 05/16/17 08:56 Dose: 300 mg Levofloxacin (Levaquin) 750 mg PO Q48H [facility] Stop: 05/22/17 09:01 Magnesium Citrate (Citrate Of Magnesia) 0 ml PO DAILY PRN PRN Reason: constipation Magnesium Hydroxide (Milk Of Magnesia) 30 ml PO DAILY PRN PRN Reason: Constipation Metoprolol Succinate (Toprol Xl) 50 mg PO DAILY [facility] Last Admin: 05/16/17 08:56 Dose: 50 mg Mometasone Furoate/Formoterol Fumar (Dulera 200-5 Mcg) 0 puff IH BID [facility] Last Admin: 05/16/17 09:00 Dose: Not Given Multivitamins/Minerals (I-Kathryn) 2 each PO DAILY [facility] Last Admin: 05/16/17 08:57 Dose: 2 each Nitroglycerin (Nitrostat) 0.4 mg SL ASDIRECTED PRN PRN Reason: Chest Pain Cholecalciferol ( Vitamin D3) 1000 Unit TabNon-Form Med 0 each PO DAILY [facility] Last Admin: 05/16/17 08:58 Dose: 4 each Ondansetron HCl (Zofran Odt) 4 mg PO Q4H PRN PRN Reason: nausea, able to take PO Last Admin: 05/14/17 08:31 Dose: 4 mg Oxycodone/Acetaminophen (Percocet 325-5 Mg) 1 tab PO BID [facility] Last Admin: 05/16/17 08:59 Dose: 1 tab Polyethylene Glycol (Miralax) 17 gm PO DAILY [facility] Last Admin: 05/16/17 09:00 Dose: Not Given Prednisone (Prednisone) 10 mg PO DAILY@0800 [facility] Last Admin: 05/16/17 08:57 Dose: 10 mg Senna/Docusate Sodium (Senna Plus) 1 tab PO BID [facility] Last Admin: 05/16/17 08:57 Dose: 1 tab Sodium Chloride (Saline Flush) 10 ml FLUSH ASDIRECTED PRN PRN Reason: Keep Vein Open Last Admin: 05/16/17 09:11 Dose: 10 ml Discontinued Medications Acetaminophen (Tylenol) 650 mg PO Q4H PRN PRN Reason: Pain (Mild 1-3)/fever Alprazolam (Xanax) 0.5 mg PO DAILY [facility] Last Admin: 05/13/17 02:19 Dose: Not Given Alprazolam (Xanax) 0.5 mg PO DAILY@1900 [facility] Last Admin: 05/13/17 01:00 Dose: Not Given Furosemide (Lasix) 20 mg PO DAILY [facility] Last Admin: 05/13/17 09:22 Dose: 20 mg Levofloxacin/Dextrose 750 mg/ (Premix) 150 mls @ 100 mls/hr IV ONETIME ONE Stop: 05/12/17 13:29 Last Infusion: 05/12/17 15:25 Dose: Infused Sodium Chloride (Normal Saline) 1,000 mls @ 75 mls/hr IV ONETIME ONE Stop: 05/13/17 05:53 Last Admin: 05/12/17 17:08 Dose: 75 mls/hr Levofloxacin/Dextrose 750 mg/ (Premix) 150 mls @ 100 mls/hr IV Q48H [facility] Last Infusion: 05/16/17 10:15 Dose: 100 mls/hr Sodium Chloride (Normal Saline) 1,000 mls @ 75 mls/hr IV ASDIRECTED [facility] Stop: 05/14/17 23:59 Last Admin: 05/14/17 12:15 Dose: 75 mls/hr Non-Formulary Medication (L Acidophil/B Lactis/B Longum [Florajen3]) 1 tab PO DAILY [facility] Ondansetron HCl (Zofran Odt) 4 mg PO Q8H PRN PRN Reason: Nausea Prednisone (Prednisone) 5 mg PO DAILY [facility] Last Admin: 05/13/17 09:22 Dose: 5 mg - Exam General: Reports: Alert, Oriented, Cooperative, No Acute Distress HEENT: Reports: Pupils Equal, Pupils Reactive, EOMI, Mucous Membr. Moist/[place] Neck: Reports: Supple, Trachea Midline, No JVD Lungs: Reports: Clear to Auscultation, Normal Respiratory Effort Cardiovascular: Reports: Regular Rate, Regular Rhythm GI/Abdominal Exam: Normal Bowel Sounds, Soft, Non-Tender (Female) Exam: Deferred Rectal (Female) Exam: Deferred Back Exam: Reports: Normal Inspection, Full Range of Motion. Denies: CVA Tenderness (L), CVA Tenderness (R) Extremities: Normal Inspection, Normal Range of Motion, Non-Tender, No Pedal Edema, Normal Capillary Refill Skin: Reports: Dry, Intact. Denies: Rash Neurological: Reports: No New Focal Deficit Psy/Mental Status: Reports: Alert, Normal Affect, Normal Mood *Q Meaningful Use (DIS) - VTE *Q VTE Criteria *Q: VTE Anticoagulation Contraindications: Alternative [place] Request PT - Stroke *Q Stroke Criteria *Q: - AMI *Q AMI Criteria *Q:
[2017-05-18] MEDS ORDERED: Levofloxacin 500 MG Tab PO SCH (09:00)
--- NOTE | 2017-05-22 13:26 | EKG ---
05/12/2017 - LEÓN MUNROE I reviewed the EKG and the EKG revealed sinus rhythm. No acute ST or T-wave changes. Heart rate 65. [facility] /[id number]
== END 2017-05-16 13:58 | disposition swing bed (61) | DRG 690 ==
LOC: DL.ED 07:23 → UNDOADMOB 08:52 → DL.MS 08:52 → OBSVTOIN 05-13 14:03
PROVIDERS: ADMIT Internal Medicine; ATTEND Internal Medicine
DX: N39.0 Urinary tract infection, site not specified (principal); G45.9 Transient cerebral ischemic attack, unspecified; G81.94 Hemiplegia, unspecified affecting left nondominant side; I10 Essential (primary) hypertension; J44.9 Chronic obstructive pulmonary disease, unspecified; M35.3 Polymyalgia rheumatica; Z79.01 Long term (current) use of anticoagulants; W19.XXXA Unspecified fall, initial encounter; E78.5 Hyperlipidemia, unspecified; I20.8 Other forms of angina pectoris; I48.0 Paroxysmal atrial fibrillation; F41.9 Anxiety disorder, unspecified; R53.1 Weakness
CPT/HCPCS: 36415 ×2; 70450; 72040; 72190; 73560; 80048; 80053; 81001; 84484 ×3; 85025 ×2; 85610; 85730; 93005; 93010; 96365; 99285; A9270 ×19; G0378 ×2; J1956; J7030; J7050; 71010; 84443; 85027; 93306; 93880; 97110-GO; 97110-GP; 97116-GP; 97162-GP; 97166-GO; 97530-GO

== ENCOUNTER 2017-05-16 13:28 | Inpatient (IN) | payer MEDICARE, OTHER, MEDICAID ==
[2017-05-16] MEDS ORDERED: Ondansetron 4 MG Tab.DIS PO PRN (14:03)
[2017-05-16] MEDS ORDERED: Magnesium Citrate Solution 296 ML Bottle PO PRN (14:03)
[2017-05-16] MEDS ORDERED: Nitroglycerin 0.4 MG Tab.SL SL PRN (14:03)
[2017-05-16] MEDS ORDERED: Magnesium Hydroxide 400 MG/5 ML Susp 30 ML Cup PO PRN (14:03)
[2017-05-16] MEDS ORDERED: Sodium Chloride 0.9% 10 ML Syringe FLUSH PRN (14:03)
--- NOTE | 2017-05-16 14:14 | PCM.HP ---
H&P History of Present Illness - General Date of Service: 05/16/17 Admit Problem/Dx: Admission Diagnosis/Problem Admission Diagnosis/Problem Weakness Source of Information: Patient - History of Present Illness Initial Comments - Free Text/Narative: 86 y/o female with PMH of HTN, COPD, A-fib on Pradaxa, polymyalgia rheumatica, vasospastic angina who presented to the hospital on 05/12/17 from assisted living facility after falling there. Prior to the fall she was in here usual health status. She remembers she slipped and fell onto the floor but does not remember how and why. She was weak and not able to get up. She mostly felt weak on the left side. She called for nursing staff for help. Nursing staff called EMS who brought her to the hospital. It was reported that she had some left facial drooping and left upper extremity weakness. CT of head on admission did not show acute abnormalities. Cervical spine x-ray and pelvic x-ray were unremarkable. Patient did not have any other symptoms. She denies fever, chills , chest pain, shortness breath, nausea, vomiting, diarrhea, bleeding, any other symptoms or concerns. Her admission physical exam reported no gross focal neurological deficit. Serial cardiac enzymes were unremarkable. Carotid ultrasound showed atheromatous plaque but no evidence of surgical stenosis. Echocardiogram is ordered but not reported yet. Chest x-ray was unremarkable. Admission Laboratory data reported previously 7.3K. Hemoglobin 13.6. Potassium 3.4. Creatinine 0.7. Troponins 0.03. LFTs are unremarkable. UA reported trace leukocyte esterase and 5-10 WBCs with many bacteria. No urine or blood cultures were done. She was started on Levaquin IV. During hospitalization patient main complaint was generalized weakness. During hospitalization she did not have any acute events. Overnight patient denies fever, chills, nausea, vomiting, chest pain, shortness breath, abdominal pain, diarrhea, hospice, insulin, black stool , unilateral weakness/numbness/tingling, discussed pain, difficulty swallowing, any other symptoms or concern. Patient is being followed by physical therapy. Patient would benefit from further physical therapy so she was admitted to swing bed. Will change her Levaquin from IV to oral. - Related Data Allergies/Adverse Reactions: Allergies Allergy/AdvReac Type Severity Reaction Status Date / Time Penicillins Allergy Intermediate Rash Verified 05/12/17 09:42 Sulfa (Sulfonamide Allergy Other Verified 05/12/17 09:42 Antibiotics) Home Medications: Home Meds Budesonide/Formoterol Fumarate [Symbicort 160-4.5 Mcg Inhaler] 2 puff INH BID [History] Calcitonin,[place],Synthetic [Miacalcin] 1 spray INH DAILY 05/31/16 [History] Cholecalciferol (Vitamin D3) [Vitamin D3] 2 tab PO DAILY 05/31/16 [History] Diltiazem [Cardizem CD] 1 tab PO DAILY 05/31/16 [History] Furosemide 20 mg PO DAILY 05/31/16 [History] L Acidophil/B Lactis/B Longum [Florajen3] 1 tab PO DAILY 05/31/16 [History] Metoprolol Succinate [Toprol XL] 1 tab PO DAILY 05/31/16 [History] Nitroglycerin [IJP: Nitroglycerin] 1 tab SL ASDIRECTED PRN 05/31/16 [History] Ondansetron HCl [Zofran] 1 tab PO Q8H PRN 05/31/16 [History] Polyethylene Glycol 3350 17 gm PO DAILY 05/31/16 [History] Sennosides/Docusate Sodium [Senna-Docusate Sodium] 1 tab PO BID 05/31/16 [ History] oxyCODONE HCl/Acetaminophen [oxyCODONE-Acetaminophen 5-325] 2 tab PO Q6H [History] Acetaminophen 500 mg PO Q8H PRN 06/01/16 [History] Magnesium Citrate [Citrate of Magnesia] 1 bottle PO DAILY PRN 06/01/16 [History] Magnesium Hydroxide [Milk of Magnesia] 30 ml PO DAILY PRN 06/01/16 [History] Propylene Glycol/Peg 400 [Systane 0.3-0.4% Eye Drops] 1 drop EYEBOTH QID [History] ALPRAZolam [Alprazolam] 1 tab PO DAILY 05/12/17 [History] Gabapentin [Neurontin] 300 mg PO TID 05/12/17 [History] Vit C/E/Zn/Coppr/Lutein/Zeaxan [Preservision Areds 2 Softgel] 2 tab PO DAILY 03/19 [History] predniSONE [Prednisone] 5 mg PO DAILY 05/12/17 [History] Past Medical History HEENT History: Reports: Impaired Vision, Macular Degeneration, Other (See Below) Other HEENT History: macular degeneration, worse in left eye Cardiovascular History: Reports: Afib, Hypertension, SOB on Exertion Respiratory History: Reports: COPD Other Respiratory History: HX OF LUNG CA Gastrointestinal History: Reports: Chronic Constipation, GERD Other Gastrointestinal History: ANOREXIA 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 History: Reports: Urinary Incontinence Other 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 History: URINARY URGENCY and frequency 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: Dysfunctional Uterine Bleeding, Fibroids, , Spontaneous Musculoskeletal History: Reports: Fracture, Osteoporosis Other Musculoskeletal History: POLYMYALGIZ RHEUMATICA; PELVIC RIM FRACTURE, RIGHT CLAVICLE FRACTURE Neurological History: Reports: None Psychiatric History: Reports: Anxiety Endocrine/Metabolic History: Reports: Osteoporosis, Vitamin D Deficiency Hematologic History: Reports: Anemia, Blood Transfusion(s), Iron Deficiency Immunologic History: Reports: Other (See Below) Other Immunologic History: POLIO, adult onset, 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 Oncologic (Cancer) History: Reports: Lung Other Oncologic History: 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 Dermatologic History: Reports: None - Infectious Disease History Infectious Disease History: Reports: Chicken Pox, Measles, Mumps Other Infectious Disease History: POLIO - Past Surgical History HEENT Surgical History: Reports: Cataract Surgery, Tonsillectomy, Other (See Below) Other HEENT Surgeries/Procedures: injections to right eye to slow macular degeneration Cardiovascular Surgical History: Reports: None Respiratory Surgical History: Reports: Lung Resection GI Surgical History: Reports: Appendectomy Female Surgical History: Reports: Hysterectomy, Salpingo-Oophorectomy, Tubal Ligation, Other (See Below) Endocrine Surgical History: Reports: None Neurological Surgical History: Reports: None Musculoskeletal Surgical History: Reports: None Oncologic Surgical History: Reports: Lobectomy Social & Family History - Family History Family Medical History: Unobtainable Cardiac: Reports: CAD, [place] Musculoskeletal: Reports: Other (See Below) Other Musculoskeletal Family History: MS - Tobacco Use Smoking Status *Q: Never Smoker Second Hand Smoke Exposure: No - Caffeine Use Caffeine Use: Reports: Coffee Other Caffeine Use: AVERAGE OF 2-3 CUPS DAILY - Recreational Drug Use Recreational Drug Use: No H&P Review of Systems - Review of Systems: Review Of Systems: ROS reveals no pertinent complaints other than HPI. Exam - Exam Exam: See Below - Exam General: Alert, Oriented, Cooperative. No: Mild Distress, Moderate Distress, Severe Distress, Sedated, Lethargic, Obtunded HEENT: Conjunctiva Clear, EACs Clear, EOMI, Hearing Intact, Mucosa Moist & [place] , Normal Nasal Septum, Posterior Pharynx Clear, Pupils Equal, Pupils Reactive, TMs Clear Neck: Supple, Trachea Midline Lungs: Clear to Auscultation, Normal Respiratory Effort Cardiovascular: Regular Rate, Regular Rhythm, Gallop/S4 GI/Abdominal Exam: Normal Bowel Sounds, Soft, Non-Tender, No Distention, No Abnormal Bruit, No Mass (Female) Exam: Deferred Rectal (Female) Exam: Deferred Back Exam: Normal Inspection, Full Range of Motion. No: CVA Tenderness (L), CVA Tenderness (R) Extremities: Normal Inspection, Normal Range of Motion, Non-Tender, No Pedal Edema, Normal Capillary Refill Skin: Warm, Dry, Intact Neurological: Cranial Nerves Intact, Strength Equal Bilateral Neuro Extensive - Mental Status: Alert, Oriented x3, Normal Mood/Affect, Normal Cognition Psychiatric: Alert, Normal Affect, Normal Mood *Q Meaningful Use (ADM) - VTE *Q VTE Criteria *Q: VTE Anticoagulation Contraindications: Alternative TX Request PT - Stroke *Q Stroke Criteria *Q: - AMI *Q AMI Criteria *Q: - Problem List (1) Atrial fibrillation SNOMED Code(s): 38269800 ICD Code: I48.91 - UNSPECIFIED ATRIAL FIBRILLATION Status: Chronic (2) Chronic anticoagulation SNOMED Code(s): 657788015 ICD Code: Z79.01 - JUDICIAL CLERK (CURRENT) USE OF ANTICOAGULANTS Status: Chronic (3) Essential hypertension SNOMED Code(s): 84283517 ICD Code: I10 - ESSENTIAL (PRIMARY) HYPERTENSION Status: Chronic (4) COPD (chronic obstructive pulmonary disease) SNOMED Code(s): 72062029 ICD Code: J44.9 - CHRONIC OBSTRUCTIVE PULMONARY DISEASE, UNSPECIFIED Status : Chronic (5) Fall SNOMED Code(s): 5220256 ICD Code: W19.XXXA - UNSPECIFIED FALL, INITIAL ENCOUNTER Status: Chronic (6) Syncope SNOMED Code(s): 815243543 ICD Code: R55 - SYNCOPE AND COLLAPSE Status: Resolved (7) TIA (transient ischemic attack) SNOMED Code(s): 401251106 ICD Code: G45.9 - TRANSIENT CEREBRAL ISCHEMIC ATTACK, UNSPECIFIED Status: Acute Problem List Initiated/Reviewed/Updated: Yes Orders Last 24hrs: Active Orders 24 hr Category Date Time Status Patient Status [ADT] Routine ADT 05/16/17 14:05 Ordered Discontinue Telemetry Monitoring [Cardiac Monitoring Care 05/16/17 14:03 Ordered Discontinue] [RC] Click to Edit Height and Weight [RC] PER UNIT ROUTINE Care 05/16/17 14:06 Ordered Intake and Output [RC] ASDIRECTED Care 05/16/17 14:05 Ordered Notify Provider Vital Signs [RC] ASDIRECTED Care 05/16/17 14:06 Ordered Oxygen Therapy [RC] PRN Care 05/16/17 14:03 Ordered Oxygen Therapy [RC] PRN Care 05/16/17 14:05 Ordered Up With Assistance [RC] ASDIRECTED Care 05/16/17 14:03 Ordered Up With Assistance [RC] ASDIRECTED Care 05/16/17 14:05 Ordered Up ad Mabel [RC] ASDIRECTED Care 05/16/17 14:05 Ordered VTE/DVT Education [RC] PER UNIT ROUTINE Care 05/16/17 14:05 Ordered Vital Signs [RC] PER UNIT ROUTINE Care 05/16/17 14:05 Ordered OT Evaluation and Treatment [CONS] Routine Cons 05/16/17 14:03 Ordered PT Evaluation and Treatment [CONS] Routine Cons 05/16/17 14:03 Ordered Regular Diet [DIET] Diet 05/16/17 Dinner Ordered ALPRAZolam [Xanax] Med 05/16/17 21:00 Ordered 0.5 mg PO BEDTIME Acetaminophen [Tylenol Extra Strength] Med 05/16/17 14:03 Ordered 500 mg PO Q8H PRN Acetaminophen/oxyCODONE [Percocet 325-5 MG] Med 05/16/17 21:00 Ordered 1 tab PO BID Calcitonin ([place]) [Miacalcin Nasal [place]] Med 05/17/17 09:00 Ordered 0 ml ANA ROSA DAILY Diltiazem [Cardizem CD] Med 05/17/17 09:00 Ordered 240 mg PO DAILY Docusate Sodium/Sennosides [Senna Plus] Med 05/16/17 21:00 Ordered 1 tab PO BID Gabapentin [Neurontin] Med 05/16/17 21:00 Ordered 300 mg PO TID Levofloxacin [Levaquin] Med 05/18/17 09:00 Ordered 750 mg PO Q48H Lutein/Minerals/Vit A,C & E [I-Kathryn] Med 05/17/17 09:00 Ordered 2 each PO DAILY Magnesium Citrate [Citrate of Magnesia] Med 05/16/17 14:03 Ordered 0 ml PO DAILY PRN Magnesium Hydroxide [Milk of Magnesia] Med 05/16/17 14:03 Ordered 30 ml PO DAILY PRN Metoprolol Succinate [Toprol XL] Med 05/17/17 09:00 Ordered 50 mg PO DAILY Mometasone/Formoterol [Dulera 200-5 MCG] Med 05/16/17 21:00 Ordered 0 puff IH BID Nitroglycerin [Nitrostat] Med 05/16/17 14:03 Ordered 0.4 mg SL ASDIRECTED PRN Non-Formulary Medication [NF Drug] Med 05/17/17 09:00 Ordered 0 each PO DAILY Ondansetron [Zofran ODT] Med 05/16/17 14:03 Ordered 4 mg PO Q4H PRN Polyethylene Glycol 3350 [MiraLAX] Med 05/17/17 09:00 Ordered 17 gm PO DAILY Polyvinyl Alcohol [LiquiTears 1.4% Ophth Soln] Med 05/16/17 17:00 Ordered 0 ml EYEBOTH QID Sodium Chloride 0.9% [Saline Flush] Med 05/16/17 14:03 Ordered 10 ml FLUSH ASDIRECTED PRN predniSONE Med 05/17/17 08:00 Ordered 10 mg PO DAILY@0800 Anticoagulation Contraindications VTE [AST] Per Unit Oth 05/16/17 14:03 Ordered Routine Resuscitation Status Routine Resus Stat 05/16/17 14:05 Ordered Medication Orders Acetaminophen (Tylenol Extra Strength) 500 mg PO Q8H PRN PRN Reason: Pain Alprazolam (Xanax) 0.5 mg PO BEDTIME LAUREN Artificial Tears (Liquitears 1.4% Ophth Soln) 0 ml EYEBOTH QID LAUREN Calcitonin [place] (Miacalcin Nasal [place]) 0 ml ANA ROSA DAILY LAUREN Diltiazem HCl (Cardizem Cd) 240 mg PO DAILY LAUREN Gabapentin (Neurontin) 300 mg PO TID LAUREN Levofloxacin (Levaquin) 750 mg PO Q48H LAUREN Stop: 05/22/17 09:01 Magnesium Citrate (Citrate Of Magnesia) 0 ml PO DAILY PRN PRN Reason: constipation Magnesium Hydroxide (Milk Of Magnesia) 30 ml PO DAILY PRN PRN Reason: Constipation Metoprolol Succinate (Toprol Xl) 50 mg PO DAILY [facility] Mometasone Furoate/Formoterol Fumar (Dulera 200-5 Mcg) 0 puff IH BID [facility] Multivitamins/Minerals (I-Kathryn) 2 each PO DAILY [facility] Nitroglycerin (Nitrostat) 0.4 mg SL ASDIRECTED PRN PRN Reason: Chest Pain Non-Formulary Medication (Nf Drug) 0 each PO DAILY [facility] Ondansetron HCl (Zofran Odt) 4 mg PO Q4H PRN PRN Reason: nausea, able to take PO Oxycodone/Acetaminophen (Percocet 325-5 Mg) 1 tab PO BID [facility] Polyethylene Glycol (Miralax) 17 gm PO DAILY [facility] Prednisone (Prednisone) 10 mg PO DAILY@0800 [facility]UREN Senna/Docusate Sodium (Senna Plus) 1 tab PO BID [facility] Sodium Chloride (Saline Flush) 10 ml FLUSH ASDIRECTED PRN PRN Reason: Keep Vein Open Assessment/Plan Comment:: Impression 86-year-old female who was living at assisted living and fell from possible syncope. She is being admitted to swing bed for generalized weakness and going to have physical and outpatient therapy. Patient complains of restless legs and wants medications for that Plan: Physical and occupational therapy Continue Levaquin orally for additional 5 days Continue home medications for her chronic conditions as per orders We'll start Requip 0.25 mg nightly for restless legs She was on pradaxa so no further and Coblation as needed for DVT prophylaxis She is DNR/DNI
[2017-05-16] MEDS: Polyvinyl Alcohol 1.4% Ophth Soln 15 ML Bottle EYEBOTH SCH ×2 (16:57→21:21)
[2017-05-16] MEDS: Acetaminophen 500 MG Tab PO PRN (17:33)
[2017-05-16] MEDS: Formoterol/Mometasone 200-5 MCG 8.8 GM Inhaler IH SCH (21:18)
[2017-05-16] MEDS: ALPRAZolam 0.5 MG Tab PO SCH (21:19)
[2017-05-16] MEDS: Gabapentin 300 MG Cap PO SCH (21:19)
[2017-05-16] MEDS: Acetaminophen/oxyCODONE 325-5 MG Tab PO SCH (21:19)
[2017-05-16] MEDS: rOPINIRole 0.25 MG Tab PO SCH (21:19)
[2017-05-17] MEDS: Acetaminophen 500 MG Tab PO PRN ×2 (04:16→16:29)
[2017-05-17] MEDS: Lutein/Minerals/Vit A,C & E Tab PO SCH (10:55)
[2017-05-17] MEDS: Polyethylene Glycol 3350 Powder 17 GM Packet PO SCH ×2 (10:55→11:08)
[2017-05-17] MEDS: Metoprolol Succinate 50 MG Tab.ER PO SCH (10:56)
[2017-05-17] MEDS: Gabapentin 300 MG Cap PO SCH ×3 (10:57→22:27)
[2017-05-17] MEDS: Diltiazem 240 MG Cap.CD PO SCH (10:57)
[2017-05-17] MEDS: predniSONE 10 MG Tab PO SCH (10:57)
[2017-05-17] MEDS: Acetaminophen/oxyCODONE 325-5 MG Tab PO SCH ×2 (10:57→22:29)
[2017-05-17] MEDS: Formoterol/Mometasone 200-5 MCG 8.8 GM Inhaler IH SCH ×3 (10:58→22:29)
[2017-05-17] MEDS: Polyvinyl Alcohol 1.4% Ophth Soln 15 ML Bottle EYEBOTH SCH ×4 (10:59→22:32)
[2017-05-17] MEDS: Calcitonin (Salmon) Nasal Spray 3.7 ML Bottle NAS SCH (11:01)
[2017-05-17] MEDS: [UNRECOGNIZED DRUG - REMARK] PO SCH (11:02)
[2017-05-17] MEDS: ALPRAZolam 0.5 MG Tab PO SCH (22:29)
[2017-05-17] MEDS: rOPINIRole 0.25 MG Tab PO SCH (22:33)
[2017-05-18] MEDS: Acetaminophen/oxyCODONE 325-5 MG Tab PO SCH ×2 (08:30→20:58)
[2017-05-18] MEDS: predniSONE 10 MG Tab PO SCH (08:31)
[2017-05-18] MEDS: Lutein/Minerals/Vit A,C & E Tab PO SCH (08:32)
[2017-05-18] MEDS: Gabapentin 300 MG Cap PO SCH ×3 (08:32→20:59)
[2017-05-18] MEDS: Metoprolol Succinate 50 MG Tab.ER PO SCH (08:38)
[2017-05-18] MEDS: Diltiazem 240 MG Cap.CD PO SCH (08:40)
[2017-05-18] MEDS: Formoterol/Mometasone 200-5 MCG 8.8 GM Inhaler IH SCH ×2 (08:44→21:00)
[2017-05-18] MEDS: Polyvinyl Alcohol 1.4% Ophth Soln 15 ML Bottle EYEBOTH SCH ×4 (08:44→21:01)
[2017-05-18] MEDS: Levofloxacin 500 MG Tab PO SCH (08:54)
[2017-05-18] MEDS: [UNRECOGNIZED DRUG - REMARK] PO SCH (09:14)
[2017-05-18] MEDS: Calcitonin (Salmon) Nasal Spray 3.7 ML Bottle NAS SCH (09:18)
[2017-05-18] MEDS: Acetaminophen 500 MG Tab PO PRN (17:31)
[2017-05-18] MEDS: ALPRAZolam 0.5 MG Tab PO SCH (21:00)
[2017-05-18] MEDS: rOPINIRole 0.25 MG Tab PO SCH (21:00)
[2017-05-19] MEDS: Acetaminophen 500 MG Tab PO PRN (05:57)
[2017-05-19] MEDS: Diltiazem 240 MG Cap.CD PO SCH (10:32)
[2017-05-19] MEDS: Formoterol/Mometasone 200-5 MCG 8.8 GM Inhaler IH SCH ×2 (10:32→20:55)
[2017-05-19] MEDS: predniSONE 10 MG Tab PO SCH (10:32)
[2017-05-19] MEDS: Polyvinyl Alcohol 1.4% Ophth Soln 15 ML Bottle EYEBOTH SCH ×4 (10:33→20:56)
[2017-05-19] MEDS: Acetaminophen/oxyCODONE 325-5 MG Tab PO SCH ×2 (10:34→20:55)
[2017-05-19] MEDS: Gabapentin 300 MG Cap PO SCH ×3 (10:34→20:55)
[2017-05-19] MEDS: Metoprolol Succinate 50 MG Tab.ER PO SCH (10:35)
[2017-05-19] MEDS: Calcitonin (Salmon) Nasal Spray 3.7 ML Bottle NAS SCH (10:36)
[2017-05-19] MEDS: [UNRECOGNIZED DRUG - REMARK] PO SCH (10:37)
[2017-05-19] MEDS: Lutein/Minerals/Vit A,C & E Tab PO SCH (10:43)
[2017-05-19] MEDS: rOPINIRole 0.25 MG Tab PO SCH (20:56)
[2017-05-19] MEDS: ALPRAZolam 0.5 MG Tab PO SCH (20:56)
[2017-05-20] MEDS: Acetaminophen/oxyCODONE 325-5 MG Tab PO SCH ×2 (08:15→21:47)
[2017-05-20] MEDS: Diltiazem 240 MG Cap.CD PO SCH (08:15)
[2017-05-20] MEDS: predniSONE 10 MG Tab PO SCH (08:15)
[2017-05-20] MEDS: Metoprolol Succinate 50 MG Tab.ER PO SCH (08:16)
[2017-05-20] MEDS: Gabapentin 300 MG Cap PO SCH ×3 (08:16→21:47)
[2017-05-20] MEDS: Formoterol/Mometasone 200-5 MCG 8.8 GM Inhaler IH SCH ×2 (08:17→21:45)
[2017-05-20] MEDS: Lutein/Minerals/Vit A,C & E Tab PO SCH (08:17)
[2017-05-20] MEDS: Polyvinyl Alcohol 1.4% Ophth Soln 15 ML Bottle EYEBOTH SCH ×4 (08:17→21:46)
[2017-05-20] MEDS: Calcitonin (Salmon) Nasal Spray 3.7 ML Bottle NAS SCH (08:18)
[2017-05-20] MEDS: Levofloxacin 500 MG Tab PO SCH (08:27)
[2017-05-20] MEDS: [UNRECOGNIZED DRUG - REMARK] PO SCH (08:29)
[2017-05-20] MEDS: Acetaminophen 500 MG Tab PO PRN (14:38)
[2017-05-20] MEDS: ALPRAZolam 0.5 MG Tab PO SCH (21:47)
[2017-05-20] MEDS: rOPINIRole 0.25 MG Tab PO SCH (21:50)
[2017-05-21] MEDS ORDERED: Gabapentin 300 MG Cap PO ONE (13:17)
[2017-05-21] MEDS ORDERED: Diltiazem 240 MG Cap.CD PO ONE (13:17)
[2017-05-21] MEDS ORDERED: Acetaminophen/oxyCODONE 325-5 MG Tab PO ONE (13:17)
[2017-05-21] MEDS ORDERED: predniSONE 10 MG Tab PO ONE (13:17)
[2017-05-21] MEDS ORDERED: Metoprolol Succinate 50 MG Tab.ER PO ONE (13:17)
[2017-05-21] MEDS ORDERED: Lutein/Minerals/Vit A,C & E Tab PO ONE (13:17)
[2017-05-21] MEDS ORDERED: ALPRAZolam 0.5 MG Tab PO ONE (13:17)
[2017-05-21] MEDS: predniSONE 10 MG Tab PO SCH (13:27)
[2017-05-21] MEDS: Diltiazem 240 MG Cap.CD PO SCH (13:28)
[2017-05-21] MEDS: Formoterol/Mometasone 200-5 MCG 8.8 GM Inhaler IH SCH (13:28)
[2017-05-21] MEDS: Calcitonin (Salmon) Nasal Spray 3.7 ML Bottle NAS SCH (13:28)
[2017-05-21] MEDS: Lutein/Minerals/Vit A,C & E Tab PO SCH (13:28)
[2017-05-21] MEDS: Polyvinyl Alcohol 1.4% Ophth Soln 15 ML Bottle EYEBOTH SCH ×4 (13:28→22:13)
[2017-05-21] MEDS: Metoprolol Succinate 50 MG Tab.ER PO SCH (13:29)
[2017-05-21] MEDS: [UNRECOGNIZED DRUG - REMARK] PO SCH (13:29)
[2017-05-21] MEDS: Acetaminophen/oxyCODONE 325-5 MG Tab PO SCH ×2 (13:29→22:14)
[2017-05-21] MEDS: Gabapentin 300 MG Cap PO SCH ×3 (13:29→22:14)
[2017-05-21] MEDS: Acetaminophen 500 MG Tab PO PRN (14:10)
[2017-05-21] MEDS: SYMBICORT INH SCH (22:13)
[2017-05-21] MEDS: rOPINIRole 0.25 MG Tab PO SCH (22:14)
[2017-05-21] MEDS: ALPRAZolam 0.5 MG Tab PO SCH (22:15)
[2017-05-22] MEDS: SYMBICORT INH SCH ×2 (10:25→17:34)
[2017-05-22] MEDS: Polyethylene Glycol 3350 Powder 17 GM Packet PO PRN (10:26)
[2017-05-22] MEDS: Calcitonin (Salmon) Nasal Spray 3.7 ML Bottle NAS SCH (10:26)
[2017-05-22] MEDS: Polyvinyl Alcohol 1.4% Ophth Soln 15 ML Bottle EYEBOTH SCH ×4 (10:26→21:40)
[2017-05-22] MEDS: Levofloxacin 500 MG Tab PO SCH (10:27)
[2017-05-22] MEDS: Metoprolol Succinate 50 MG Tab.ER PO SCH (10:27)
[2017-05-22] MEDS: predniSONE 10 MG Tab PO SCH (10:28)
[2017-05-22] MEDS: Acetaminophen/oxyCODONE 325-5 MG Tab PO SCH ×2 (10:28→21:34)
[2017-05-22] MEDS: Lutein/Minerals/Vit A,C & E Tab PO SCH (10:28)
[2017-05-22] MEDS: Gabapentin 300 MG Cap PO SCH ×3 (10:28→21:34)
[2017-05-22] MEDS: Diltiazem 240 MG Cap.CD PO SCH (10:28)
[2017-05-22] MEDS: [UNRECOGNIZED DRUG - REMARK] PO SCH (10:30)
[2017-05-22] MEDS: rOPINIRole 0.25 MG Tab PO SCH (21:33)
[2017-05-22] MEDS: ALPRAZolam 0.5 MG Tab PO SCH (21:33)
[2017-05-23] MEDS: SYMBICORT INH SCH ×2 (06:30→17:48)
[2017-05-23] MEDS: predniSONE 10 MG Tab PO SCH (08:32)
[2017-05-23] MEDS: Gabapentin 300 MG Cap PO SCH ×3 (08:32→21:51)
[2017-05-23] MEDS: Polyethylene Glycol 3350 Powder 17 GM Packet PO PRN (08:32)
[2017-05-23] MEDS: Metoprolol Succinate 50 MG Tab.ER PO SCH (08:33)
[2017-05-23] MEDS: Acetaminophen/oxyCODONE 325-5 MG Tab PO SCH ×2 (08:33→21:50)
[2017-05-23] MEDS: Diltiazem 240 MG Cap.CD PO SCH (08:33)
[2017-05-23] MEDS: Lutein/Minerals/Vit A,C & E Tab PO SCH (08:33)
[2017-05-23] MEDS: Calcitonin (Salmon) Nasal Spray 3.7 ML Bottle NAS SCH (08:34)
[2017-05-23] MEDS: Polyvinyl Alcohol 1.4% Ophth Soln 15 ML Bottle EYEBOTH SCH ×4 (08:34→21:52)
[2017-05-23] MEDS: [UNRECOGNIZED DRUG - REMARK] PO SCH (08:37)
--- NOTE | 2017-05-23 09:49 | PCM.PN ---
- General Info Date of Service: 05/23/17 Admission Dx/Problem (Free Text): Admission Diagnosis/Problem Admission Diagnosis/Problem Weakness Subjective Update: Patient is feeling better. She feels stronger, her lower extremity pain is better. She is be eating better. She admitted having constipation and not having bowel movements since 05/19/17 and feeling some abdominal discomfort. She denies fever, chills, nausea, vomiting, chest pain, shortness breath, palpation, diarrhea, urinary symptoms, unilateral weakness/numbness/tingling, any other symptoms or concerns - Patient Data Vitals - Most Recent: Last Vital Signs Temp 36.9 C 05/23/17 07:51 Pulse 94 05/23/17 08:33 Resp 20 05/23/17 07:51 BP 144/50 H 05/23/17 08:33 Pulse Ox 96 05/23/17 07:51 Weight - Most Recent: 41.277 kg I&O - Last 24 Hours: Intake & Output 05/22/17 05/23/17 05/23/17 22:59 06:59 14:59 Intake Total 300 240 Balance 300 240 Med Orders - Current: Current Medications Acetaminophen (Tylenol Extra Strength) 500 mg PO Q8H PRN PRN Reason: Pain Last Admin: 05/21/17 14:10 Dose: 500 mg Alprazolam (Xanax) 0.5 mg PO BEDTIME [facility] Last Admin: 05/22/17 21:33 Dose: 0.5 mg Artificial Tears (Liquitears 1.4% Ophth Soln) 0 ml EYEBOTH QID [facility] Last Admin: 05/23/17 08:34 Dose: 1 drop Calcitonin [place] (Miacalcin Nasal [place]) 0 ml ANA ROSA DAILY [facility] Last Admin: 05/23/17 08:34 Dose: 1 spray Diltiazem HCl (Cardizem Cd) 240 mg PO DAILY [facility] Last Admin: 05/23/17 08:33 Dose: 240 mg Gabapentin (Neurontin) 300 mg PO TID [facility] Last Admin: 05/23/17 08:32 Dose: 300 mg Magnesium Citrate (Citrate Of Magnesia) 0 ml PO DAILY PRN PRN Reason: constipation Magnesium Hydroxide (Milk Of Magnesia) 30 ml PO DAILY PRN PRN Reason: Constipation Metoprolol Succinate (Toprol Xl) 50 mg PO DAILY [facility] Last Admin: 05/23/17 08:33 Dose: 50 mg Multivitamins/Minerals (I-Kathryn) 2 each PO DAILY [facility] Last Admin: 05/23/17 08:33 Dose: 2 each Nitroglycerin (Nitrostat) 0.4 mg SL ASDIRECTED PRN PRN Reason: Chest Pain Cholecalciferol ( Vitamin D3) 1000 Unit TabNon-Form Med 0 each PO DAILY [facility] Last Admin: 05/23/17 08:37 Dose: Not Given Ondansetron HCl (Zofran Odt) 4 mg PO Q4H PRN PRN Reason: nausea, able to take PO Oxycodone/Acetaminophen (Percocet 325-5 Mg) 1 tab PO BID [facility] Last Admin: 05/23/17 08:33 Dose: 1 tab Symbicort 160-4.5 Mcg Patient's Own Medication 0 each INH BIDRT [facility] Last Admin: 05/23/17 06:30 Dose: 2 each Polyethylene Glycol (Miralax) 17 gm PO DAILY PRN PRN Reason: Constipation Last Admin: 05/23/17 08:32 Dose: 17 gm Prednisone (Prednisone) 10 mg PO DAILY@0800 [facility] Last Admin: 05/23/17 08:32 Dose: 10 mg Ropinirole HCl (Requip) 0.25 mg PO BEDTIME [facility] Last Admin: 05/22/17 21:33 Dose: 0.25 mg Senna/Docusate Sodium (Senna Plus) 1 tab PO BID [facility] Last Admin: 05/23/17 08:32 Dose: 1 tab Discontinued Medications Levofloxacin (Levaquin) 750 mg PO Q48H [facility] Stop: 05/22/17 09:01 Last Admin: 05/22/17 10:27 Dose: 750 mg Mometasone Furoate/Formoterol Fumar (Dulera 200-5 Mcg) 0 puff IH BID [facility] Last Admin: 05/21/17 13:28 Dose: Not Given Polyethylene Glycol (Miralax) 17 gm PO DAILY [facility] Last Admin: 05/17/17 11:08 Dose: Not Given Sodium Chloride (Saline Flush) 10 ml FLUSH ASDIRECTED PRN PRN Reason: Keep Vein Open - Exam General: Alert, Cooperative, No Acute Distress, Other (She still looks frail). No: Mild Distress, Moderate Distress, Severe Distress, Sedated, Lethargic, Obtunded HEENT: Pupils Equal, Pupils Reactive, EOMI, Mucous Membr. Moist/[place] Neck: Supple, Trachea Midline, No JVD Lungs: Clear to Auscultation, Normal Respiratory Effort Cardiovascular: Regular Rate, Regular Rhythm GI/Abdominal Exam: Soft, No Organomegaly, No Distention, No Abnormal Bruit, No Mass, Distended (Mildly), Tender (Some discomfort with deep palpation). No: Guarding, Rigid, Rebound (Female) Exam: Deferred Back Exam: Normal Inspection, Full Range of Motion. 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) USE OF ANTICOAGULANTS Status: Chronic Current Visit: Yes (3) Essential hypertension SNOMED Code(s): 14354405 Code(s): I10 - ESSENTIAL (PRIMARY) HYPERTENSION Status: Chronic Current Visit: Yes (4) COPD (chronic obstructive pulmonary disease) SNOMED Code(s): 92021089 Code(s): J44.9 - CHRONIC OBSTRUCTIVE PULMONARY DISEASE, UNSPECIFIED Status : Chronic Current Visit: Yes (5) Fall SNOMED Code(s): 9642121 Code(s): W19.XXXA - UNSPECIFIED FALL, INITIAL ENCOUNTER Status: Chronic Current Visit: No (6) Syncope SNOMED Code(s): 323079908 Code(s): R55 - SYNCOPE AND COLLAPSE Status: Resolved Current Visit: No (7) TIA (transient ischemic attack) SNOMED Code(s): 486838350 Code(s): G45.9 - TRANSIENT CEREBRAL ISCHEMIC ATTACK, UNSPECIFIED Status: Acute Current Visit: No (8) Constipation SNOMED Code(s): 03526986 Code(s): K59.00 - CONSTIPATION, UNSPECIFIED Status: Acute Current Visit: Yes - Problem List Review Problem List Initiated/Reviewed/Updated: Yes - Plan Plan:: Impression 86-year-old female who was living at assisted living and fell from possible syncope. She is being admitted to swing bed for generalized weakness and going to have physical and outpatient therapy. Patient complains of restless legs and wants medications for that Today the only concern is constipation with some lower extremities pain Plan: Patient is benefiting from physical and occupational therapy. I believe she will benefit from further physical and patient therapy. Levaquin orally for possible UTI was stopped Continue home medications for her chronic conditions as per orders Requip 0.25 mg nightly was started last week for restless legs. We'll continue his medications Continue MiraLAX as patient does not want to try milk of magnesia yet. We'll try milk of magnesia as patient doesn't have all movement tomorrow She was on pradaxa so no further anticoagulation needed for DVT prophylaxis She is DNR/DNI
[2017-05-23] MEDS: rOPINIRole 0.25 MG Tab PO SCH (21:49)
[2017-05-23] MEDS: ALPRAZolam 0.5 MG Tab PO SCH (21:50)
[2017-05-24] MEDS: SYMBICORT INH SCH ×2 (06:03→18:18)
[2017-05-24] MEDS: Gabapentin 300 MG Cap PO SCH ×3 (08:51→21:25)
[2017-05-24] MEDS: Acetaminophen/oxyCODONE 325-5 MG Tab PO SCH ×2 (08:51→21:24)
[2017-05-24] MEDS: predniSONE 10 MG Tab PO SCH (08:51)
[2017-05-24] MEDS: Diltiazem 240 MG Cap.CD PO SCH (08:51)
[2017-05-24] MEDS: Metoprolol Succinate 50 MG Tab.ER PO SCH (08:51)
[2017-05-24] MEDS: Lutein/Minerals/Vit A,C & E Tab PO SCH (08:51)
[2017-05-24] MEDS: Polyethylene Glycol 3350 Powder 17 GM Packet PO PRN ×2 (08:52→21:27)
[2017-05-24] MEDS: Polyvinyl Alcohol 1.4% Ophth Soln 15 ML Bottle EYEBOTH SCH ×4 (08:52→21:30)
[2017-05-24] MEDS: [UNRECOGNIZED DRUG - REMARK] PO SCH (08:53)
[2017-05-24] MEDS: Calcitonin (Salmon) Nasal Spray 3.7 ML Bottle NAS SCH (08:53)
[2017-05-24] MEDS: rOPINIRole 0.25 MG Tab PO SCH (21:24)
[2017-05-24] MEDS: ALPRAZolam 0.5 MG Tab PO SCH (21:25)
[2017-05-25] MEDS: SYMBICORT INH SCH ×2 (06:19→17:46)
[2017-05-25] MEDS: Diltiazem 240 MG Cap.CD PO SCH (08:10)
[2017-05-25] MEDS: Metoprolol Succinate 50 MG Tab.ER PO SCH (08:11)
[2017-05-25] MEDS: predniSONE 10 MG Tab PO SCH (08:12)
[2017-05-25] MEDS: Lutein/Minerals/Vit A,C & E Tab PO SCH (08:12)
[2017-05-25] MEDS: Gabapentin 300 MG Cap PO SCH ×3 (08:13→21:00)
[2017-05-25] MEDS: Acetaminophen/oxyCODONE 325-5 MG Tab PO SCH ×2 (08:13→21:00)
[2017-05-25] MEDS: [UNRECOGNIZED DRUG - REMARK] PO SCH (08:14)
[2017-05-25] MEDS: Polyvinyl Alcohol 1.4% Ophth Soln 15 ML Bottle EYEBOTH SCH ×4 (08:16→21:02)
[2017-05-25] MEDS: Calcitonin (Salmon) Nasal Spray 3.7 ML Bottle NAS SCH (08:18)
[2017-05-25] MEDS: Acetaminophen 500 MG Tab PO PRN (13:25)
[2017-05-25] MEDS: ALPRAZolam 0.5 MG Tab PO SCH (21:01)
[2017-05-25] MEDS: rOPINIRole 0.25 MG Tab PO SCH (21:01)
[2017-05-26] MEDS: SYMBICORT INH SCH ×2 (06:13→17:34)
[2017-05-26] MEDS: Metoprolol Succinate 50 MG Tab.ER PO SCH (08:27)
[2017-05-26] MEDS: predniSONE 10 MG Tab PO SCH (08:27)
[2017-05-26] MEDS: Acetaminophen/oxyCODONE 325-5 MG Tab PO SCH ×2 (08:27→20:07)
[2017-05-26] MEDS: Lutein/Minerals/Vit A,C & E Tab PO SCH (08:27)
[2017-05-26] MEDS: Gabapentin 300 MG Cap PO SCH ×3 (08:27→20:07)
[2017-05-26] MEDS: Calcitonin (Salmon) Nasal Spray 3.7 ML Bottle NAS SCH (08:28)
[2017-05-26] MEDS: Diltiazem 240 MG Cap.CD PO SCH (08:28)
[2017-05-26] MEDS: Polyvinyl Alcohol 1.4% Ophth Soln 15 ML Bottle EYEBOTH SCH ×4 (08:28→20:10)
[2017-05-26] MEDS: [UNRECOGNIZED DRUG - REMARK] PO SCH (08:29)
[2017-05-26] MEDS: rOPINIRole 0.25 MG Tab PO SCH (20:06)
[2017-05-26] MEDS: ALPRAZolam 0.5 MG Tab PO SCH (20:06)
[2017-05-27] MEDS: SYMBICORT INH SCH ×2 (06:17→17:46)
[2017-05-27] MEDS: Diltiazem 240 MG Cap.CD PO SCH (10:03)
[2017-05-27] MEDS: Gabapentin 300 MG Cap PO SCH ×3 (10:03→20:37)
[2017-05-27] MEDS: Lutein/Minerals/Vit A,C & E Tab PO SCH (10:03)
[2017-05-27] MEDS: Metoprolol Succinate 50 MG Tab.ER PO SCH (10:04)
[2017-05-27] MEDS: Calcitonin (Salmon) Nasal Spray 3.7 ML Bottle NAS SCH (10:04)
[2017-05-27] MEDS: Acetaminophen/oxyCODONE 325-5 MG Tab PO SCH ×2 (10:04→20:37)
[2017-05-27] MEDS: Polyvinyl Alcohol 1.4% Ophth Soln 15 ML Bottle EYEBOTH SCH ×4 (10:04→20:39)
[2017-05-27] MEDS: predniSONE 10 MG Tab PO SCH (10:04)
[2017-05-27] MEDS: [UNRECOGNIZED DRUG - REMARK] PO SCH (10:04)
[2017-05-27] MEDS: rOPINIRole 0.25 MG Tab PO SCH (20:37)
[2017-05-27] MEDS: ALPRAZolam 0.5 MG Tab PO SCH (20:39)
[2017-05-28] MEDS: SYMBICORT INH SCH ×2 (06:37→18:43)
[2017-05-28] MEDS: Gabapentin 300 MG Cap PO SCH ×3 (09:36→20:35)
[2017-05-28] MEDS: Acetaminophen/oxyCODONE 325-5 MG Tab PO SCH ×2 (09:36→20:34)
[2017-05-28] MEDS: predniSONE 10 MG Tab PO SCH (09:36)
[2017-05-28] MEDS: Metoprolol Succinate 50 MG Tab.ER PO SCH (09:40)
[2017-05-28] MEDS: Diltiazem 240 MG Cap.CD PO SCH (09:42)
[2017-05-28] MEDS: Polyvinyl Alcohol 1.4% Ophth Soln 15 ML Bottle EYEBOTH SCH ×4 (09:47→20:35)
[2017-05-28] MEDS: Calcitonin (Salmon) Nasal Spray 3.7 ML Bottle NAS SCH (09:48)
[2017-05-28] MEDS: Lutein/Minerals/Vit A,C & E Tab PO SCH (12:35)
[2017-05-28] MEDS: [UNRECOGNIZED DRUG - REMARK] PO SCH (12:36)
[2017-05-28] MEDS: rOPINIRole 0.25 MG Tab PO SCH (20:34)
[2017-05-28] MEDS: ALPRAZolam 0.5 MG Tab PO SCH (20:34)
[2017-05-29 07:09] VITALS: BP 169/44
[2017-05-29] MEDS: Lutein/Minerals/Vit A,C & E Tab PO SCH (09:53)
[2017-05-29] MEDS: Diltiazem 240 MG Cap.CD PO SCH (09:53)
[2017-05-29] MEDS: Metoprolol Succinate 50 MG Tab.ER PO SCH (09:53)
[2017-05-29] MEDS: SYMBICORT INH SCH (09:53)
[2017-05-29] MEDS: Calcitonin (Salmon) Nasal Spray 3.7 ML Bottle NAS SCH (09:54)
[2017-05-29] MEDS: Gabapentin 300 MG Cap PO SCH (09:54)
[2017-05-29] MEDS: predniSONE 10 MG Tab PO SCH (09:54)
[2017-05-29] MEDS: Acetaminophen/oxyCODONE 325-5 MG Tab PO SCH (09:54)
[2017-05-29] MEDS: [UNRECOGNIZED DRUG - REMARK] PO SCH (09:54)
[2017-05-29] MEDS: Polyvinyl Alcohol 1.4% Ophth Soln 15 ML Bottle EYEBOTH SCH (09:54)
--- NOTE | 2017-05-31 07:33 | DISCH ---
DISCHARGE DIAGNOSES: 1. Generalized weakness. Admitted to swing bed for strengthening and occupational therapy and physical therapy. 2. Fall at [facility] on 05/13/2017. 3. Urinary tract infection, treated. 4. Past medical history includes hypertension, chronic obstructive pulmonary disease, paroxysmal atrial fibrillation, chronic anticoagulation, polymyalgia rheumatica, and anxiety disorder. BRIEF HISTORY OF PRESENT ILLNESS: Mrs. Agustin is an 86-year-old lady who resides at the [facility]. She was in her usual state of health when on 05/13, she fell in her room, did not sustain any injury, but on exam, it was felt that she had some left-sided arm and leg weakness and possible facial droop. She was brought to the emergency room for evaluation. CT scan was negative. She was admitted. She was found to have UTI, and this was treated. She was seen and evaluated by Occupational and Physical Therapy during the acute stay, and it was felt that she would benefit from a short swing bed stay for strengthening. PERTINENT LABS AND X-RAYS: No labs were performed during her swing bed stay and no imaging studies were performed. SWING BED COURSE: Mrs. Agustin worked on a daily basis with Physical and Occupational Therapy to improve strength and safety. There was no residual left - sided arm or leg weakness. Therapy worked with her on a daily basis, and she gradually improved. On the night prior to discharge, I had been in to see her, and there was a question of whether she was strong enough to go home based on discussion with her. The nurse recruiter manager for [facility] actually came to the hospital on the morning of discharge, was seeing another patient. She observed in [facility] and felt that she was back to her baseline. Therapy and the nurse recruiter manager at [facility] agreed that she could safely be discharged back. Review of her clinical data showed that during the admission, she drank adequate fluids. She tolerated her meals. Her appetite is fair. She was voiding and moving her bowels. Vital signs were stable, and she was afebrile throughout the admission. PHYSICAL EXAMINATION: General: She is a pleasant lady, seated in her recliner when I saw her. She voiced no new concerns or complaints. Denied any chest pain or shortness of breath. Denied any calf or leg pain. Vital Signs: Blood pressure was 132/49, pulse 56, respiratory rate 18, oxygen saturation 96% on room air, and she was afebrile. Her weight is 91 pounds, height 5 feet. HEENT: Unremarkable. ENT was clear. Neck: No JVDs or bruits. No adenopathy. Chest: Showed clear bilateral breath sounds. Heart: Showed regular rate and rhythm. Abdomen: Soft, benign. Extremities: Showed no edema. The calves were soft and nontender. Neurological: She is intact. IMPRESSION: An 86-year-old lady initially admitted following a fall and was treated for urinary tract infection in acute care and then admitted to swing bed for strengthening and to work with Physical and Occupational Therapy. PLAN: 1. She will be discharged back to [facility] in improved and stable condition. 2. Her usual medications will be continued. The medications were reconciled and can be seen in [facility]. ALLERGIES: Penicillin and sulfa. CONDITION AT THE TIME OF DISCHARGE: Hemodynamically, neurologically stable and improved. CODE STATUS DURING THIS ADMISSION: Do not resuscitate/do not intubate. CC: Marleny Valentin MODL /[id number] ARASH
--- NOTE | 2017-06-03 23:40 | PN ---
DATE: 05/28/2017 SUBJECTIVE: Mrs. Agustin is an 86-year-old lady, who previously resided at the [facility]. On 05/13, she fell in her room, did not sustain any injury but on exam, it was initially felt that she had some left-sided arm and leg weakness and possible facial droop. She was admitted to Acute Care from 05/13 to 05/16, and then was admitted to swing bed for ongoing physical and occupational therapy because of generalized weakness and for strengthening. Tomorrow, she will be discharged back to the [facility] as Therapy feels that she has achieved her goals. Today, Mrs. Agustin denies any new problems. No chest pain or shortness of breath. No abdominal pain. There have been no falls. Review of her clinical data shows stable vital signs. She has remained afebrile. She is taking in fluids. She is voiding and moving her bowels. Appetite is fair. No recent lab work has been performed. OBJECTIVE: General: On exam, she is a pleasant elderly lady, oriented, and participates in the visit. Denies any new complaints or concerns. She is seated comfortably in her recliner. Vital Signs: Blood pressure 148/58, pulse 66, respiratory rate 20, oxygen saturation 94% on room air. She is afebrile. Weight is 91 pounds. Height is 5 feet. HEENT: Unremarkable. ENT was clear. Neck: Supple. Examination of neck showed no JVDs or bruits. No adenopathy. No thyromegaly. Chest: Showed clear bilateral breath sounds. Heart: Showed regular rate and rhythm. Abdomen: Soft, benign. Extremities: Showed no edema. Calves were soft and nontender. Neurological: There were no deficits. ASSESSMENT AND PLAN: There was a question this evening of whether she was really ready to return to [facility]. I had not seen her previously and I wondered if she was strong enough. The nurse retention manager for [facility] will actually be here tomorrow morning prior to discharge and we will have her stop in and see Mrs. Agustin for her opinion. Otherwise, Mrs. Agustin feels she is ready to return. No other changes are made in her care today. We will get ready for discharge tomorrow. [facility] /[id number] MTDD
== END 2017-05-29 13:43 | disposition home or self-care (01) | DRG 948 ==
LOC: DL.MS 14:05
PROVIDERS: ADMIT Family Medicine; ATTEND Family Medicine
DX: R53.1 Weakness (principal); I10 Essential (primary) hypertension; I48.91 Unspecified atrial fibrillation; M35.3 Polymyalgia rheumatica; I20.8 Other forms of angina pectoris; Z88.0 Allergy status to penicillin; Z88.2 Allergy status to sulfonamides; H35.30 Unspecified macular degeneration; J44.9 Chronic obstructive pulmonary disease, unspecified; Z85.118 Personal history of other malignant neoplasm of bronchus and lung; K21.9 Gastro-esophageal reflux disease without esophagitis; K59.09 Other constipation; R32 Unspecified urinary incontinence; M81.0 Age-related osteoporosis without current pathological fracture; F41.9 Anxiety disorder, unspecified; E55.9 Vitamin D deficiency, unspecified; D50.9 Iron deficiency anemia, unspecified; Z66 Do not resuscitate; R55 Syncope and collapse; Z79.01 Long term (current) use of anticoagulants
CPT/HCPCS: 97110-GO; 97110-GP; 97116-GP; 97161-GP; 97165-GO; 97530-GO; 97535-GO; A9270-GY

== ENCOUNTER 2017-06-22 08:53 | Observation (INO) | payer MEDICARE, OTHER, MEDICAID ==
--- NOTE | 2017-06-22 09:01 | EDM.PDOC ---
ED HPI GENERAL MEDICAL PROBLEM - General Chief Complaint: Head Injury Stated Complaint: FALL FROM ODD [place] Time Seen by Provider: 06/22/17 08:59 Source of Information: Reports: Patient, [facility] Records, RN, RN Notes Reviewed History Limitations: Reports: No Limitations - History of Present Illness INITIAL COMMENTS - FREE TEXT/NARRATIVE: Patient presents to ER with complaint of falling in the bathroom at her apartment at [facility]. She states the fall happened 2 days ago. States she hit the floor with the back of her head and m[place]cl[place]. She complained of shortness of breath, pain in mid to upper back.States she hit her head but did not loose consciousness. Patient has nausea, shortness of breath, chest pain and fever. Denies vomiting or diarrhea. Location: Reports: Head Quality: Reports: Ache Severity: Moderate Improves with: Reports: None Worsens with: Reports: None Associated Symptoms: Reports: No Other Symptoms Bilateral Shoulder Pain Score (Numeric/FACES): 8 - Related Data Allergies Allergy/AdvReac Type Severity Reaction Status Date / Time Penicillins Allergy Intermediate Rash Verified 06/22/17 09:07 Sulfa (Sulfonamide Allergy Other Verified 06/22/17 09:07 Antibiotics) Home Meds: Home Meds Budesonide/Formoterol Fumarate [Symbicort 160-4.5 Mcg Inhaler] 2 puff INH BID [History] Calcitonin,[place],Synthetic [Miacalcin] 1 spray INH DAILY 05/31/16 [History] Cholecalciferol (Vitamin D3) [Vitamin D3] 2 tab PO DAILY 05/31/16 [History] Diltiazem [Cardizem CD] 1 tab PO DAILY 05/31/16 [History] Furosemide 20 mg PO DAILY 05/31/16 [History] L Acidophil/B Lactis/B Longum [Florajen3] 1 tab PO DAILY 05/31/16 [History] Metoprolol Succinate [Toprol XL] 1 tab PO DAILY 05/31/16 [History] Nitroglycerin [IJP: Nitroglycerin] 1 tab SL ASDIRECTED PRN 05/31/16 [History] Ondansetron HCl [Zofran] 1 tab PO Q8H PRN 05/31/16 [History] Polyethylene Glycol 3350 17 gm PO DAILY 05/31/16 [History] Sennosides/Docusate Sodium [Senna-Docusate Sodium] 1 tab PO BID 05/31/16 [ History] Acetaminophen 500 mg PO Q8H PRN 06/01/16 [History] Magnesium Citrate [Citrate of Magnesia] 1 bottle PO DAILY PRN 06/01/16 [History] Magnesium Hydroxide [Milk of Magnesia] 30 ml PO DAILY PRN 06/01/16 [History] Propylene Glycol/Peg 400 [Systane 0.3-0.4% Eye Drops] 1 drop EYEBOTH QID [History] ALPRAZolam [Alprazolam] 1 tab PO DAILY 05/12/17 [History] Gabapentin [Neurontin] 300 mg PO TID 05/12/17 [History] predniSONE [Prednisone] 5 mg PO DAILY 05/12/17 [History] Lutein/Minerals/Vit A,C & E [I-Kathryn] 2 each PO DAILY tablet 05/29/17 [Rx] Ondansetron [Zofran ODT] 4 mg PO Q4H PRN #0 tab.dis 05/29/17 [Rx] Patient's Own Medication [Ptom] 0 each INH BIDRT each 05/29/17 [Rx] oxyCODONE HCl/Acetaminophen [oxyCODONE-Acetaminophen 5-325] 1 tab PO Q6H #30 tablet 05/29/17 [Rx] rOPINIRole [Requip] 0.25 mg PO BEDTIME tablet 05/29/17 [Rx] Calcium Carb/Vitamin D3/Vit K1 [Viactiv Soft Chew] 1 tab PO BID 06/22/17 [ History] Past Medical History HEENT History: Reports: Impaired Vision, Macular Degeneration, Other (See Below) Other HEENT History: macular degeneration, worse in left eye Cardiovascular History: Reports: Afib, Hypertension, SOB on Exertion Respiratory History: Reports: COPD Other Respiratory History: HX OF LUNG CA Gastrointestinal History: Reports: Chronic Constipation, GERD Other Gastrointestinal History: ANOREXIA 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 History: Reports: Urinary Incontinence Other 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 History: URINARY URGENCY and frequency CASE FILLER History: Reports: Dysfunctional Uterine Bleeding, Fibroids, , Spontaneous Musculoskeletal History: Reports: Fracture, Osteoporosis Other Musculoskeletal History: POLYMYALGIZ RHEUMATICA; PELVIC RIM FRACTURE, RIGHT CLAVICLE FRACTURE Neurological History: Reports: None Psychiatric History: Reports: Anxiety Endocrine/Metabolic History: Reports: Osteoporosis, Vitamin D Deficiency Hematologic History: Reports: Anemia, Blood Transfusion(s), Iron Deficiency Immunologic History: Reports: Other (See Below) Other Immunologic History: POLIO, adult onset, 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 Oncologic (Cancer) History: Reports: Lung Other Oncologic History: 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 Dermatologic History: Reports: None - Infectious Disease History Infectious Disease History: Reports: Chicken Pox, Measles, Mumps Other Infectious Disease History: POLIO - Past Surgical History HEENT Surgical History: Reports: Cataract Surgery, Tonsillectomy, Other (See Below) Other HEENT Surgeries/Procedures: injections to right eye to slow macular degeneration Cardiovascular Surgical History: Reports: None Respiratory Surgical History: Reports: Lung Resection GI Surgical History: Reports: Appendectomy Female Surgical History: Reports: Hysterectomy, Salpingo-Oophorectomy, Tubal Ligation, Other (See Below) Endocrine Surgical History: Reports: None Neurological Surgical History: Reports: None Musculoskeletal Surgical History: Reports: None Oncologic Surgical History: Reports: Lobectomy Social & Family History - Family History Family Medical History: Unobtainable Cardiac: Reports: CAD, NM Musculoskeletal: Reports: Other (See Below) Other Musculoskeletal Family History: MS - Tobacco Use Smoking Status *Q: Never Smoker Second Hand Smoke Exposure: No - Caffeine Use Caffeine Use: Reports: Coffee Other Caffeine Use: AVERAGE OF 2-3 CUPS DAILY - Recreational Drug Use Recreational Drug Use: No - Living Situation & Occupation Living situation: Reports: Assisted Living Occupation: Retired ED ROS GENERAL - Review of Systems Review Of Systems: ROS reveals no pertinent complaints other than HPI. ED EXAM, UPPER BACK/NECK PAIN - Physical Exam Exam: See Below Exam Limited By: No Limitations General Appearance: Mild Distress Eye Exam: Bilateral Eye: Normal Inspection Ears Exam: Normal External Exam, Normal Canal, Hearing Grossly Normal, Normal TMs Nose Exam: Normal Inspection, Normal Mucousa, No Blood Throat/Mouth Exam: Normal Inspection, Normal Lips, Normal Teeth, Normal Gums, Normal Oropharynx, Normal Voice, No Airway Compromise Head Exam: Atraumatic, Normocephalic Neck Exam: Non-Tender, Full Range of Motion, Normal Alignment, Normal Inspection Cardiovascular/Respiratory: Other (crackles throughout. Heart is irregular) GI/Abdominal: Normal Bowel Sounds, Soft, Non-Tender, No Organomegaly, No Distention, No Abnormal Bruit, No Mass (Female) Exam: Deferred Rectal (Female) Exam: Deferred Back Exam: Decreased Range of Motion Extremities: Normal Inspection Neurologic: surgery assistant II-XII nml As Tested, No Motor/Sensory Deficits, Alert, Normal Mood/Affect, Oriented x 3 Psychiatric: Normal Affect, Normal Mood Skin Exam: Other (face flushed) Lymphatic: No Adenopathy Course - Vital Signs Last Recorded V/S: Last Vital Signs Temp 99.3 F 06/22/17 09:07 Pulse 88 06/22/17 09:07 Resp 20 06/22/17 09:07 BP 179/60 H 06/22/17 09:07 Pulse Ox 95 06/22/17 09:07 - Orders/Labs/Meds Orders: Active Orders 24 hr Category Date Time Status EKG Documentation Completion [RC] STAT Care 06/22/17 09:33 Active Peripheral IV Care [RC] . DIRECTED Care 06/22/17 09:33 Active UA W/MICROSCOPIC [URIN] Stat Lab 06/22/17 09:33 Uncollected Sodium Chloride 0.9% [Saline Flush] Med 06/22/17 09:32 Active 10 ml FLUSH ASDIRECTED PRN Peripheral IV Insertion Adult [OM.PC] Stat Oth 06/22/17 09:32 Ordered Medication Orders Sodium Chloride (Saline Flush) 10 ml FLUSH ASDIRECTED PRN PRN Reason: Keep Vein Open Last Admin: 06/22/17 09:43 Dose: 10 ml Labs: Laboratory Tests 06/22/17 06/22/17 06/22/17 Range/Units 09:17 09:17 09:17 WBC 8.3 (5.0-10.0) 10^3/uL RBC 4.04 L (4.2-5.4) 10^6/uL Hgb 13.7 (12.0-16.0) g/dL Hct 39.7 (37.0-47.0) % MCV 98.3 (80-100) fL MCH 33.9 (27.0-34.0) pg MCHC 34.5 (33.0-35.0) g/dL Plt Count 185 (150-450) 10^3/uL Neut % (Auto) 65.5 (42.2-75.2) % Lymph % (Auto) 22.2 (20.5-50.1) % Duchesne % (Auto) 9.7 H (2-8) % Eos % (Auto) 2.4 (1.0-3.0) % Baso % (Auto) 0.2 (0.0-1.0) % Sodium 134 L (135-145) mmol/L Potassium 3.1 L (3.6-5.0) mmol/L Chloride 95 L (101-111) mmol/L Carbon Dioxide 26.0 (21.0-31.0) mmol/L Anion Gap 16.1 BUN 19 H (7-18) mg/dL Creatinine 0.7 (0.6-1.3) mg/dL Est Cr Clr Drug Dosing 38.19 mL/min Estimated GFR (MDRD) > 60 BUN/Creatinine Ratio 27.14 Glucose 147 H (74-105) mg/dL Calcium 9.1 (8.4-10.2) mg/dl Total Bilirubin 1.1 H (0.2-1.0) mg/dL AST 36 (10-42) IU/L ALT 15 (10-60) IU/L Alkaline Phosphatase 97 (42-121) IU/L Creatine Kinase 84 (26-174) IU/L Creatine Kinase Index 2.1 (0-2.4) % CK-MB (CK-2) 1.80 (0.4-4.7) ng/mL Troponin I 0.08 H* (0.00-0.02) ng/ml Total Protein 6.3 L (6.7-8.2) g/dl Albumin 3.8 (3.2-5.5) g/dl Globulin 2.5 Albumin/Globulin Ratio 1.52 Meds: Medications Generic Name Dose Route Start Last Admin Trade Name Freq PRN Reason Stop Dose Admin Sodium Chloride 10 ml 06/22/17 09:32 06/22/17 09:43 Saline Flush FLUSH 10 ml ASDIRECTED PRN Administration Keep Vein Open Discontinued Medications Generic Name Dose Route Start Last Admin Trade Name Freq PRN Reason Stop Dose Admin Aspirin 324 mg 06/22/17 10:40 06/22/17 10:44 Aspirin PO 06/22/17 10:41 324 mg ONETIME ONE Administration Morphine Sulfate 1 mg 06/22/17 09:33 06/22/17 09:43 Morphine IVPUSH 06/22/17 09:34 1 mg ONETIME ONE Administration - Radiology Interpretation Free Text/Narrative:: CT cervical spine: No cervical spine fracture or dislocation. Osteopenia, multilevel disc disease and arthritis of the spine. See Rad report. CT head: No new evidence of skull fracture or closed head trauma. Chronic atrophy and multi-infarct ischemic changes. See Rad report. CT chest/abdomen and pelvis: No acute fractures or abdominal visceral trauma. ( OldT11 and T12 vertebral body fractures osteoportic patient). Cardiomegaly, small dependent new pleural effusions andnew posterior segment right lower lobe atelectasis or infiltrate. See Rad report. Departure - Departure Time of Disposition: 10:48 Disposition: Refer to Observation Condition: Fair Clinical Impression: NSTEMI (non-ST elevated myocardial infarction) Fall Qualifiers: Encounter type: initial encounter Qualified Code(s): W19.XXXA - Unspecified fall, initial encounter - Discharge Information - My Orders Last 24 Hours: My Active Orders 06/22/17 09:32 Sodium Chloride 0.9% [Saline Flush] 10 ml FLUSH ASDIRECTED PRN Peripheral IV Insertion Adult [OM.PC] Stat 06/22/17 09:33 EKG Documentation Completion [RC] STAT Peripheral IV Care [RC] . DIRECTED UA W/MICROSCOPIC [URIN] Stat - Assessment/Plan Last 24 Hours: My Active Orders 06/22/17 09:32 Sodium Chloride 0.9% [Saline Flush] 10 ml FLUSH ASDIRECTED PRN Peripheral IV Insertion Adult [OM.PC] Stat 06/22/17 09:33 EKG Documentation Completion [RC] STAT Peripheral IV Care [RC] . DIRECTED UA W/MICROSCOPIC [URIN] Stat
[2017-06-22] MEDS ORDERED: Sodium Chloride 0.9% 10 ML Syringe FLUSH PRN ×2 (09:32→12:13)
[2017-06-22] MEDS ORDERED: Morphine 2 MG/ML Syringe IVPUSH ONE (09:33)
[2017-06-22 09:53] LABS: ANION GAP 16.1; CHLORIDE,CL 95 mmol/L (101-111); SODIUM,NA 134 mmol/L (135-145)
--- NOTE | 2017-06-22 10:35 | CT ---
Clinical history: 86-year-old female injured in a fall. TECHNIQUE: Volume acquisition of data emergency unenhanced CT scan of the cervical spine and neck obt ained with the patient lying supine on the Siemens multi slice scanner [place], [place]. All data archived in the PACS system for storage, reformatting axial/sagittal/nahun nal planes and study. Interpretation: Exaggerated lordosis and mild cervicothoracic scoliosis osteopenic patient. Signs of chronic multilevel cervical disc disease i.e. interspace narrowing with endplate sclerosis a nd hypertrophic marginal spur formation particularly C3-4, 5-6 and C6-C7 levels (prominent uncinate s purs encroaching posteriorly on the spinal canal). No sign of cervical fracture, spondylolisthesis or jumped locked facet (extensive reactive arthritic changes of the articulating facets, posteriorly). No fractures the medial clavicle or first 2 ribs. Lung apices clear. CONCLUSION: No cervical spine fracture or dislocation. Osteopenia, multilevel disc disease and arthri tis of the spine.
[2017-06-22] MEDS ORDERED: Aspirin 81 MG Tab.Chew PO ONE (10:40)
--- NOTE | 2017-06-22 10:40 | CT ---
Clinical history: 86-year-old female injured in a fall. Scan technique: Volume acquisition of data emergency unenhanced CT scan of the head and brain obtaine d with patient lying supine on the Siemens multi slice scanner [facility]. All data archived in the PACS system for storage and study (bone/brain windows). Interpretation: 1. Generalized severe but symmetric, age-appropriate, cerebral cortical atrophy unchanged since 2016 exam. 2. Forming thick bony calvarium without sign of skull fracture, underlying brain contusion or epidura l/subdural hematoma. 3. Symmetric clear pneumatization of the mastoid and paranasal sinuses. Physiologic pineal and choroi d plexus calcifications. 4. No new supratentorial or posterior fossa mass lesion. Cerebellum and brainstem unremarkable. 5. Scattered microvascular multi-infarct ischemic lesions throughout the periventricular white matter but....no sign of acute intracerebral/intraventricular/subarachnoid bleed. CONCLUSION: No new evidence skull fracture or closed head trauma. Chronic atrophy and multi-infarct i schemic changes.
--- NOTE | 2017-06-22 10:56 | CT ---
Clinical history: 86-year-old female injured in a fall who significantly has had previous lung cancer surgery, appendectomy and hysterectomy. "Microvascular ischemic changes but no sign of skull or cerv ical spine fracture". Scan technique: Volume acquisition of data from the chest, abdomen and pelvis obtained while the jef ent was lying supine on the Siemens multi slice CT scanner [facility]. All data archived in the PACS system for storage, reformatting axial/sagittal/coronal planes a nd study. Interpretation: 1. Insufficiency fractures T11 and T12 vertebral bodies noted on 17 April 2017 exam i.e. old. Car Park Attendant xin multilevel lumbar disc disease, osteoporosis, and severe dorsolumbar scoliosis. 2. Bibasilar atelectasis or fibrosis but no sign of rib fracture or pneumothorax. No lung mass/lympha denopathy. Volume loss and small right pleural effusion with underlying atelectasis or infiltrate new since 16 March 2016. 3. Dense calcification scattered along the course of normal caliber ectatic thoracic and abdominal ao rta. No aneurysm or dissection. 4. Cardiomegaly but no pericardial effusion, current signs of alveolar edema or dependent pleural eff usion. 5. Unenhanced liver, stomach, spleen, atrophic pancreas, adrenal glands and kidneys unremarkable. Nor mal midline urinary bladder. Specifically, no sign of visceral rupture or retroperitoneal hematoma. 6. No pelvic or abdominal mass lesion, inflammatory "dirty" peritoneal fat, signs of mechanical bowel obstruction, ascites or free intraperitoneal air. 7. Arthritic degenerative changes but no sign of acute fracture either hip or bony pelvis. CONCLUSION: No acute fractures or abdominal visceral trauma. (Old T11 and T12 vertebral body fracture s osteoporotic patient) Cardiomegaly, small dependent new pleural effusions and new posterior segment right lower lobe atelectasis or infiltrate.
[2017-06-22] MEDS ORDERED: Ondansetron 4 MG Tab.DIS PO PRN (11:34)
[2017-06-22] MEDS ORDERED: Metoprolol Succinate 50 MG Tab.ER PO SCH ×2 (11:45→12:02)
[2017-06-22] MEDS ORDERED: ALPRAZolam 0.5 MG Tab PO SCH (11:45)
--- NOTE | 2017-06-22 12:27 | PCM.PN ---
- General Info Date of Service: 06/22/17 Admission Dx/Problem (Free Text): fall, elevated troponin Subjective Update: The patient is an 86-year-old lady who lives in basic care facility. She has a history of atrial fibrillation, chronic steroid use for polymyalgia rheumatica, hypertension, COPD. She has been on chronic Narcotics for chronic back pain, anterior chest pain. She fell on 20 June. This appears that this was accidental fall with no associated loss of consciousness. On the day of admission the patient reported increased pain in the back. She denies fever, chills. She has chronic shortness of breath. - Review of Systems General: Reports: Weakness. Denies: Fever Pulmonary: Reports: Shortness of Breath (Chronic mostly with activity). Denies : Cough Cardiovascular: Reports: Other (She has pain in the back between the shoulder blades since the fall. The pain is worse with movements.). Denies: Chest Pain Gastrointestinal: Denies: Abdominal Pain 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: Denies: Dysuria Neurological: Denies: Confusion - Patient Data Vitals - Most Recent: Last Vital Signs Temp 37.4 C 06/22/17 09:07 Pulse 88 06/22/17 09:07 Resp 20 06/22/17 09:07 BP 179/60 H 06/22/17 09:07 Pulse Ox 95 06/22/17 09:07 Weight - Most Recent: 41.73 kg Med Orders - Current: Current Medications Acetaminophen (Tylenol Extra Strength) 500 mg PO Q8H PRN PRN Reason: Pain Alprazolam (Xanax) 0.5 mg PO BEDTIME [facility] Aspirin (Aspirin) 81 mg PO WITHBREAKFAST [facility] Diltiazem HCl (Cardizem Cd) 240 mg PO DAILY [facility] Furosemide (Lasix) 20 mg PO .QOD [facility] Gabapentin (Neurontin) 300 mg PO TID [facility] Heparin Sodium (Porcine) (Heparin Sodium) 5,000 units SUBCUT Q8HR [facility] Metoprolol Succinate (Toprol Xl) 50 mg PO DAILY [facility] Multivitamins/Minerals (I-Kathryn) 2 each PO DAILY [facility] Non-Formulary Medication (Budesonide/Formoterol) 2 puff INH BID [facility] Ondansetron HCl (Zofran Odt) 4 mg PO Q4H PRN PRN Reason: nausea, able to take PO Oxycodone/Acetaminophen (Percocet 325-5 Mg) 1 tab PO Q6H PRN PRN Reason: Pain Polyethylene Glycol (Miralax) 17 gm PO DAILY [facility] Prednisone (Prednisone) 5 mg PO DAILY [facility] Ropinirole HCl (Requip) 0.25 mg PO BEDTIME [facility] Senna/Docusate Sodium (Senna Plus) 1 tab PO BID [facility] Sodium Chloride (Saline Flush) 10 ml FLUSH ASDIRECTED PRN PRN Reason: Keep Vein Open Last Admin: 06/22/17 09:43 Dose: 10 ml Sodium Chloride (Saline Flush) 10 ml FLUSH ASDIRECTED PRN PRN Reason: Keep Vein Open Discontinued Medications Alprazolam (Xanax) mg PO DAILY [facility] Aspirin (Aspirin) 324 mg PO ONETIME ONE Stop: 06/22/17 10:41 Last Admin: 06/22/17 10:44 Dose: 324 mg Diltiazem HCl (Cardizem Cd) mg PO DAILY [facility] Furosemide (Lasix) 20 mg PO DAILY [facility] Metoprolol Succinate (Toprol Xl) mg PO DAILY [facility] Metoprolol Succinate (Toprol Xl) 50 mg PO DAILY [facility] Morphine Sulfate (Morphine) 1 mg IVPUSH ONETIME ONE Stop: 06/22/17 09:34 Last Admin: 06/22/17 09:43 Dose: 1 mg - Exam General: Alert, Oriented Neck: Supple Lungs: Normal Respiratory Effort, Decreased Breath Sounds Cardiovascular: Regular Rate, Regular Rhythm GI/Abdominal Exam: Normal Bowel Sounds, Soft Extremities: No Pedal Edema, Other (Reproducible pain on pressure on the back mid thoracic spine area.) Skin: Warm Neurological: No New Focal Deficit Psy/Mental Status: Alert, Normal Affect, Normal Mood - Problem List & Annotations (1) Fall SNOMED Code(s): 9718520 Code(s): W19.XXXA - UNSPECIFIED FALL, INITIAL ENCOUNTER Status: Chronic Current Visit: Yes Qualifiers: Encounter type: initial encounter Qualified Code(s): W19.XXXA - Unspecified fall, initial encounter (2) Atrial fibrillation SNOMED Code(s): 35971680 Code(s): I48.91 - UNSPECIFIED ATRIAL FIBRILLATION Status: Chronic Current Visit: No (3) COPD (chronic obstructive pulmonary disease) SNOMED Code(s): 87077734 Code(s): J44.9 - CHRONIC OBSTRUCTIVE PULMONARY DISEASE, UNSPECIFIED Status : Chronic Current Visit: No - Problem List Review Problem List Initiated/Reviewed/Updated: Yes - My Orders Last 24 Hours: My Active Orders 06/22/17 11:34 Acetaminophen [Tylenol Extra Strength] 500 mg PO Q8H PRN Acetaminophen/oxyCODONE [Percocet 325-5 MG] 1 tab PO Q6H PRN Ondansetron [Zofran ODT] 4 mg PO Q4H PRN 06/22/17 11:45 predniSONE 5 mg PO DAILY 06/22/17 12:13 Patient Status [ADT] Routine Oxygen Therapy [RC] PRN Up With Assistance [RC] ASDIRECTED VTE/DVT Education [RC] PER UNIT ROUTINE Vital Signs [RC] Q4H Sodium Chloride 0.9% [Saline Flush] 10 ml FLUSH ASDIRECTED PRN Saline Lock Insert [OM.PC] Routine Resuscitation Status Routine 06/22/17 12:16 Antiembolic Hose [OM.PC] Per Unit Routine 06/22/17 12:17 Antiembolic Devices [RC] PER UNIT ROUTINE 06/22/17 12:18 OT Evaluation and Treatment [CONS] Routine PT Evaluation and Treatment [CONS] Routine 06/22/17 14:00 Gabapentin [Neurontin] 300 mg PO TID Heparin Sodium 5,000 units SUBCUT Q8HR 06/22/17 16:00 TROPONIN I [CHEM] Timed 06/22/17 21:00 ALPRAZolam [Xanax] 0.5 mg PO BEDTIME Budesonide/Formoterol 2 puff INH BID Docusate Sodium/Sennosides [Senna Plus] 1 tab PO BID rOPINIRole [Requip] 0.25 mg PO BEDTIME 06/22/17 Dinner Regular Diet [DIET] 06/23/17 05:11 TROPONIN I [CHEM] AM 06/23/17 05:15 BASIC METABOLIC PANEL,BMP [CHEM] AM CBC WITH AUTO DIFF [HEME] AM 06/23/17 08:00 Aspirin 81 mg PO WITHBREAKFAST Furosemide [Lasix] 20 mg PO .QOD Metoprolol Succinate [Toprol XL] 50 mg PO DAILY 06/23/17 09:00 Diltiazem [Cardizem CD] 240 mg PO DAILY Lutein/Minerals/Vit A,C & E [I-Kathryn] 2 each PO DAILY Polyethylene Glycol 3350 [MiraLAX] 17 gm PO DAILY - Plan Plan:: The patient is an 86-year-old lady with a history of hypertension, COPD, chronic prednisone use for polymyalgia rheumatica, atrial fibrillation on no anticoagulation. #1 fall Doesn't appear that this was syncopal episode. The patient does have mildly elevated troponin but her symptoms are very atypical for acute [place]. We'll monitor on telemetry, repeat troponin. Will have physical and occupational therapy evaluated the patient is not continue with the stay in basic care facility is appropriate #2 atrial fibrillation Currently the EKG per my reading shows sinus rhythm Continue metoprolol Add aspirin with the concern of the elevated troponin We'll not start anticoagulation given the high fall risk. #3 COPD with chronic shortness of breath We'll continue inhalers I do not think the patient has an acute exacerbation #4 polymyalgia rheumatica Continue prednisone #5 back pain with a history of chronic pain with chronic continuous narcotic use and dependency Continue Percocet, Tylenol, Neurontin #6 DVT prophylaxis will be subcutaneous heparin
[2017-06-22] MEDS: predniSONE 5 MG Tab PO SCH (13:55)
[2017-06-22] MEDS: Gabapentin 300 MG Cap PO SCH ×2 (15:45→20:35)
[2017-06-22] MEDS: Heparin Sodium 5,000 Units/ML Vial SUBCUT SCH ×2 (15:46→22:13)
[2017-06-22] MEDS: Acetaminophen/oxyCODONE 325-5 MG Tab PO PRN ×2 (15:46→22:07)
[2017-06-22] MEDS ORDERED: Potassium Chloride 10 MEQ Tab.ER PO ONE ×3 (15:47→22:00)
[2017-06-22] MEDS: Levofloxacin 250 MG Tab PO SCH (16:44)
[2017-06-22] MEDS: Acetaminophen 500 MG Tab PO PRN (20:29)
[2017-06-22] MEDS: Diltiazem 240 MG Cap.CD PO SCH (20:29)
[2017-06-22] MEDS: ALPRAZolam 0.5 MG Tab PO SCH (20:34)
[2017-06-22] MEDS: rOPINIRole 0.25 MG Tab PO SCH (20:35)
[2017-06-23] MEDS: Heparin Sodium 5,000 Units/ML Vial SUBCUT SCH ×3 (05:26→21:07)
[2017-06-23] MEDS: Acetaminophen/oxyCODONE 325-5 MG Tab PO PRN ×3 (05:26→18:03)
[2017-06-23 07:11] LABS: ANION GAP 13.5; CHLORIDE,CL 99 mmol/L (101-111); SODIUM,NA 136 mmol/L (135-145)
[2017-06-23] MEDS: Aspirin 81 MG Tab.Chew PO SCH (07:45)
[2017-06-23] MEDS: Metoprolol Succinate 50 MG Tab.ER PO SCH ×2 (07:45→09:03)
[2017-06-23] MEDS: Furosemide 20 MG Tab PO SCH (08:15)
[2017-06-23] MEDS: Acetaminophen 500 MG Tab PO PRN (08:15)
[2017-06-23] MEDS ORDERED: Diltiazem 240 MG Cap.CD PO SCH (09:00)
[2017-06-23] MEDS ORDERED: Furosemide 20 MG Tab PO SCH (09:00)
[2017-06-23] MEDS: Lutein/Minerals/Vit A,C & E Tab PO SCH (09:01)
[2017-06-23] MEDS: Gabapentin 300 MG Cap PO SCH ×3 (09:02→21:06)
[2017-06-23] MEDS: predniSONE 5 MG Tab PO SCH (09:02)
[2017-06-23] MEDS: Polyethylene Glycol 3350 Powder 17 GM Packet PO SCH (09:05)
[2017-06-23] MEDS: Potassium Chloride 10 MEQ Tab.ER PO SCH (09:12)
--- NOTE | 2017-06-23 10:43 | PCM.HP ---
H&P History of Present Illness - General Date of Service: 06/21/17 Admit Problem/Dx: fall, elevated troponin Source of Information: Patient, Provider (ER) - History of Present Illness Initial Comments - Free Text/Narative: The patient is an 86-year-old lady with a history of hypertension, COPD, chronic prednisone use for polymyalgia rheumatica, atrial fibrillation on no anticoagulation. She lives in a basic care facility She fell 2 days prior to this admission. She was brought in because of increased back pain and there was concern that she is not able to live at the basic care assistance level. She has been complaining of back pain she also has chronic chest pain. The back pain is worse with movements. She has been taking Neurontin and Percocet for this in the past Bilateral Shoulder Pain Score (Numeric/FACES): 8 Back Pain Score (Numeric/FACES): 8 - Related Data Allergies/Adverse Reactions: Allergies Allergy/AdvReac Type Severity Reaction Status Date / Time Penicillins Allergy Intermediate Rash Verified 06/22/17 11:18 Sulfa (Sulfonamide Allergy Intermediate Rash Verified 06/22/17 11:18 Antibiotics) Home Medications: Home Meds Budesonide/Formoterol Fumarate [Symbicort 160-4.5 Mcg Inhaler] 2 puff INH 05/31/16 [History] Calcitonin,[place],Synthetic [Miacalcin] 1 spray INH 79905/31/16 [History] Cholecalciferol (Vitamin D3) [Vitamin D3] 4,000 units PO 79905/31/16 [History] Diltiazem [Cardizem CD] 240 mg PO 199905/31/16 [History] Furosemide 20 mg PO 79905/31/16 [History] L Acidophil/B Lactis/B Longum [Florajen3] 460 mg PO 79905/31/16 [History] Metoprolol Succinate [Toprol XL] 50 mg PO 79905/31/16 [History] Nitroglycerin [IJP: Nitroglycerin] 1 tab SL ASDIRECTED PRN 05/31/16 [History] Polyethylene Glycol 3350 17 gm PO 0805/31/16 [History] Sennosides/Docusate Sodium [Senna-Docusate Sodium] 1 tab PO 05/31/16 [ History] Acetaminophen 500 mg PO Q8H PRN 06/01/16 [History] Magnesium Citrate [Citrate of Magnesia] 1 bottle PO DAILY PRN 06/01/16 [History] Magnesium Hydroxide [Milk of Magnesia] 30 ml PO DAILY PRN 06/01/16 [History] Propylene Glycol/Peg 400 [Systane 0.3-0.4% Eye Drops] 1 drop EYEBOTH 08,12,06, 20 06/01/16 [History] ALPRAZolam [Alprazolam] 0.5 mg PO 2000 05/12/17 [History] Gabapentin [Neurontin] 300 mg PO 08,14,20 05/12/17 [History] predniSONE [Prednisone] 5 mg PO 0800 05/12/17 [History] Lutein/Minerals/Vit A,C & E [I-Kathryn] 2 each PO DAILY tablet 05/29/17 [Rx] Ondansetron [Zofran ODT] 4 mg PO Q4H PRN #0 tab.dis 05/29/17 [Rx] oxyCODONE HCl/Acetaminophen [oxyCODONE-Acetaminophen 5-325] 1 tab PO Q6H #30 tablet 05/29/17 [Rx] rOPINIRole [Requip] 0.25 mg PO BEDTIME tablet 05/29/17 [Rx] Calcium Carb/Vitamin D3/Vit K1 [Viactiv Soft Chew] 1 tab PO BID 06/22/17 [ History] Past Medical History HEENT History: Reports: Impaired Vision, Macular Degeneration, Other (See Below) Other HEENT History: macular degeneration, worse in left eye Cardiovascular History: Reports: Afib, Hypertension, SOB on Exertion Respiratory History: Reports: COPD Other Respiratory History: HX OF LUNG CA Gastrointestinal History: Reports: Chronic Constipation, GERD Other Gastrointestinal History: ANOREXIA 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 History: Reports: Urinary Incontinence Other 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 History: URINARY URGENCY and frequency SET[employer]IPMENT History: Reports: Dysfunctional Uterine Bleeding, Fibroids, , Spontaneous Musculoskeletal History: Reports: Fracture, Osteoporosis Other Musculoskeletal History: POLYMYALGIZ RHEUMATICA; PELVIC RIM FRACTURE, RIGHT CLAVICLE FRACTURE Neurological History: Reports: None Psychiatric History: Reports: Anxiety Endocrine/Metabolic History: Reports: Osteoporosis, Vitamin D Deficiency Hematologic History: Reports: Anemia, Blood Transfusion(s), Iron Deficiency Immunologic History: Reports: Other (See Below) Other Immunologic History: POLIO, adult onset, 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 Oncologic (Cancer) History: Reports: Lung Other Oncologic History: 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 Dermatologic History: Reports: None - Infectious Disease History Infectious Disease History: Reports: Chicken Pox, Measles, Mumps Other Infectious Disease History: POLIO - Past Surgical History HEENT Surgical History: Reports: Cataract Surgery, Tonsillectomy, Other (See Below) Other HEENT Surgeries/Procedures: injections to right eye to slow macular degeneration Cardiovascular Surgical History: Reports: None Respiratory Surgical History: Reports: Lung Resection GI Surgical History: Reports: Appendectomy Female Surgical History: Reports: Hysterectomy, Salpingo-Oophorectomy, Tubal Ligation, Other (See Below) Endocrine Surgical History: Reports: None Neurological Surgical History: Reports: None Musculoskeletal Surgical History: Reports: None Oncologic Surgical History: Reports: Lobectomy Social & Family History - Family History Family Medical History: Unobtainable Cardiac: Reports: CAD, [place] Musculoskeletal: Reports: Other (See Below) Other Musculoskeletal Family History: MS - Tobacco Use Smoking Status *Q: Never Smoker Second Hand Smoke Exposure: No - Caffeine Use Caffeine Use: Reports: Coffee Other Caffeine Use: AVERAGE OF 2-3 CUPS DAILY - Recreational Drug Use Recreational Drug Use: No - Living Situation & Occupation Living situation: Reports: Assisted Living Occupation: Retired H&P Review of Systems - Review of Systems: Review Of Systems: See Below General: Reports: Fever (Low-grade fever noted in the emergency room), Weakness Pulmonary: Reports: Shortness of Breath (Chronic) Cardiovascular: Reports: Chest Pain (Chronic) Musculoskeletal: Reports: Other (Mid thoracic back pain) Neurological: Denies: Confusion Exam - Exam Exam: See Below - Vital Signs Vital Signs: Last Vital Signs Temp 36.8 C 06/23/17 07:54 Pulse 63 06/23/17 07:54 Resp 20 06/23/17 07:54 BP 123/54 L 06/23/17 07:54 Pulse Ox 98 06/23/17 07:54 Weight: 41.912 kg - Exam Quality Assessment: Supplemental Oxygen General: Alert, Oriented Neck: Supple Lungs: Normal Respiratory Effort, Decreased Breath Sounds Cardiovascular: Regular Rate, Regular Rhythm GI/Abdominal Exam: Normal Bowel Sounds, Soft, Non-Tender Back Exam: Paraspinal Tenderness (In the mid thoracic area) Extremities: No: Pedal Edema Skin: Warm, Dry Neuro Extensive - Mental Status: Alert, Oriented x3 - Patient Data Lab Results Last 24 hrs: Laboratory Results - last 24 hr 06/22/17 06/22/17 06/23/17 Range/Units 15:40 16:23 06:12 WBC 6.6 (5.0-10.0) 10^3/uL RBC 3.96 L (4.2-5.4) 10^6/uL Hgb 13.1 (12.0-16.0) g/dL Hct 40.0 (37.0-47.0) % MCV 101.0 H (80-100) fL MCH 33.1 (27.0-34.0) pg MCHC 32.8 L (33.0-35.0) g/dL Plt Count 188 (150-450) 10^3/uL Neut % (Auto) 61.3 (42.2-75.2) % Lymph % (Auto) 24.7 (20.5-50.1) % [place] % (Auto) 11.1 H (2-8) % Eos % (Auto) 2.6 (1.0-3.0) % Baso % (Auto) 0.3 (0.0-1.0) % Sodium (135-145) mmol/L Potassium (3.6-5.0) mmol/L Chloride (101-111) mmol/L Carbon Dioxide (21.0-31.0) mmol/L Anion Gap BUN (7-18) mg/dL Creatinine (0.6-1.3) mg/dL Est Cr Clr Drug Dosing mL/min Estimated GFR (MDRD) Glucose (74-105) mg/dL Calcium (8.4-10.2) mg/dl Troponin I 0.07 H* (0.00-0.02) ng/ml Urine Color Yellow (YELLOW) Urine Appearance Cloudy (CLEAR) Urine pH 7.0 (5.0-9.0) Ur Specific [place] 1.020 (1.005-1.030) Urine Protein 30 H (NEGATIVE) Urine Glucose (UA) Negative (NEGATIVE) Urine Ketones Trace H (NEGATIVE) Urine Occult Blood Negative (NEGATIVE) Urine Nitrite Negative (NEGATIVE) Urine Bilirubin Negative (NEGATIVE) Urine Urobilinogen 2.0 H (0.2-1.0) mg/dL Ur Leukocyte Esterase Trace H (NEGATIVE) Urine RBC 0-5 /HPF Urine WBC 5-10 H (0-5/HPF) /HPF Ur Epithelial Cells Moderate H /HPF Urine Bacteria Many H (0-FEW/HPF) /HPF Urine Mucus Few H /LPF 06/23/17 Range/Units 06:12 WBC (5.0-10.0) 10^3/uL RBC (4.2-5.4) 10^6/uL Hgb (12.0-16.0) g/dL Hct (37.0-47.0) % MCV (80-100) fL MCH (27.0-34.0) pg MCHC (33.0-35.0) g/dL Plt Count (150-450) 10^3/uL Neut % (Auto) (42.2-75.2) % Lymph % (Auto) (20.5-50.1) % [place] % (Auto) (2-8) % Eos % (Auto) (1.0-3.0) % Baso % (Auto) (0.0-1.0) % Sodium 136 (135-145) mmol/L Potassium 4.5 (3.6-5.0) mmol/L Chloride 99 L (101-111) mmol/L Carbon Dioxide 28.0 (21.0-31.0) mmol/L Anion Gap 13.5 BUN 17 (7-18) mg/dL Creatinine 0.5 L (0.6-1.3) mg/dL Est Cr Clr Drug Dosing 51.46 mL/min Estimated GFR (MDRD) > 60 Glucose 86 (74-105) mg/dL Calcium 8.9 (8.4-10.2) mg/dl Troponin I 0.04 H* (0.00-0.02) ng/ml Urine Color (YELLOW) Urine Appearance (CLEAR) Urine pH (5.0-9.0) Ur Specific [place] (1.005-1.030) Urine Protein (NEGATIVE) Urine Glucose (UA) (NEGATIVE) Urine Ketones (NEGATIVE) Urine Occult Blood (NEGATIVE) Urine Nitrite (NEGATIVE) Urine Bilirubin (NEGATIVE) Urine Urobilinogen (0.2-1.0) mg/dL Ur Leukocyte Esterase (NEGATIVE) Urine RBC /HPF Urine WBC (0-5/HPF) /HPF Ur Epithelial Cells /HPF Urine Bacteria (0-FEW/HPF) /HPF Urine Mucus /LPF Result Diagrams: 06/23/17 06:12 06/23/17 06:12 *Q Meaningful Use (ADM) - VTE *Q VTE Criteria *Q: - Stroke *Q Stroke Criteria *Q: - AMI *Q AMI Criteria *Q: - Problem List (1) Fall SNOMED Code(s): 0133547 ICD Code: W19.XXXA - UNSPECIFIED FALL, INITIAL ENCOUNTER Status: Chronic Current Visit: Yes Qualifiers: Encounter type: initial encounter Qualified Code(s): W19.XXXA - Unspecified fall, initial encounter (2) Atrial fibrillation SNOMED Code(s): 29270373 ICD Code: I48.91 - UNSPECIFIED ATRIAL FIBRILLATION Status: Chronic Current Visit: No (3) COPD (chronic obstructive pulmonary disease) SNOMED Code(s): 42892593 ICD Code: J44.9 - CHRONIC OBSTRUCTIVE PULMONARY DISEASE, UNSPECIFIED Status : Chronic Current Visit: No Problem List Initiated/Reviewed/Updated: Yes Orders Last 24hrs: Active Orders 24 hr Category Date Time Status Feather Baler Discontinue [Cardiac Monitoring Care 06/23/17 10:34 Ordered Discontinue] [RC] Click to Edit OT Evaluation and Treatment [CONS] Routine Cons 06/22/17 12:18 Active PT Evaluation and Treatment [CONS] Routine Cons 06/22/17 12:18 Active CULTURE URINE [RM] Routine Lab 06/22/17 15:40 Received ALPRAZolam [Xanax] Med 06/22/17 21:00 Active 0.5 mg PO BEDTIME Diltiazem [Cardizem CD] Med 06/22/17 20:00 Active 240 mg PO DAILY@1999 Furosemide [Lasix] Med 06/23/17 08:00 Active 20 mg PO Q48H Levofloxacin [Levaquin] Med 06/22/17 16:30 Active 250 mg PO Q24H Lidocaine 5% [Lidoderm 5%] Med 06/24/17 09:00 Ordered 700 mg TOP DAILY Metoprolol Succinate [Toprol XL] Med 06/23/17 08:00 Active 50 mg PO DAILY Potassium Chloride [Klor-Con 10] Med 06/23/17 09:00 Active 20 meq PO Q48H Remove Patch Med 06/23/17 21:00 Active 1 ea TRDERM BEDTIME Medication Orders Acetaminophen (Tylenol Extra Strength) 500 mg PO Q8H PRN PRN Reason: Pain Last Admin: 06/23/17 08:15 Dose: 500 mg Admin: 06/22/17 20:29 Dose: 500 mg Alprazolam (Xanax) 0.5 mg PO BEDTIME [facility] Last Admin: 06/22/17 20:34 Dose: 0.5 mg Aspirin (Aspirin) 81 mg PO WITHBREAKFAST [facility] Last Admin: 06/23/17 07:45 Dose: 81 mg Diltiazem HCl (Cardizem Cd) 240 mg PO DAILY@1999 [facility] Last Admin: 06/22/17 20:29 Dose: 240 mg Furosemide (Lasix) 20 mg PO Q48H [facility] Last Admin: 06/23/17 08:15 Dose: 20 mg Gabapentin (Neurontin) 300 mg PO TID [facility] Last Admin: 06/23/17 09:02 Dose: 300 mg Admin: 06/22/17 20:35 Dose: 300 mg Admin: 06/22/17 15:45 Dose: 300 mg Heparin Sodium (Porcine) (Heparin Sodium) 5,000 units SUBCUT Q8HR [facility] Last Admin: 06/23/17 05:26 Dose: 5,000 units Admin: 06/22/17 22:13 Dose: 5,000 units Admin: 06/22/17 15:46 Dose: 5,000 units Levofloxacin (Levaquin) 250 mg PO Q24H [facility] Last Admin: 06/22/17 16:44 Dose: 250 mg Lidocaine (Lidoderm 5%) 700 mg TOP DAILY [facility] Metoprolol Succinate (Toprol Xl) 50 mg PO DAILY [facility] Last Admin: 06/23/17 09:03 Dose: Admin: 06/23/17 07:45 Dose: 50 mg Miscellaneous Information (Remove Patch) 1 ea TRDERM BEDTIME [facility] Multivitamins/Minerals (I-Kathryn) 2 each PO DAILY [facility] Last Admin: 06/23/17 09:01 Dose: 2 each (Budesonide/Formoterol 2 Puff)* Pt Owm Tim*-Sjs 2 puff INH BID [facility] Last Admin: 06/23/17 09:04 Dose: 2 puff Admin: 06/22/17 22:07 Dose: 2 puff Ondansetron HCl (Zofran Odt) 4 mg PO Q4H PRN PRN Reason: nausea, able to take PO Oxycodone/Acetaminophen (Percocet 325-5 Mg) 1 tab PO Q6H PRN PRN Reason: Pain Last Admin: 06/23/17 05:26 Dose: 1 tab Admin: 06/22/17 22:07 Dose: 1 tab Admin: 06/22/17 15:46 Dose: 1 tab Polyethylene Glycol (Miralax) 17 gm PO DAILY [facility] Last Admin: 06/23/17 09:05 Dose: 17 gm Potassium Chloride (Klor-Con 10) 20 meq PO Q48H [facility] Last Admin: 06/23/17 09:12 Dose: 20 meq Prednisone (Prednisone) 5 mg PO DAILY [facility] Last Admin: 06/23/17 09:02 Dose: 5 mg Admin: 06/22/17 13:55 Dose: Ropinirole HCl (Requip) 0.25 mg PO BEDTIME [facility] Last Admin: 06/22/17 20:35 Dose: 0.25 mg Senna/Docusate Sodium (Senna Plus) 1 tab PO BID [facility] Last Admin: 06/23/17 09:02 Dose: 1 tab Admin: 06/22/17 20:35 Dose: 1 tab Sodium Chloride (Saline Flush) 10 ml FLUSH ASDIRECTED PRN PRN Reason: Keep Vein Open Assessment/Plan Comment:: The patient is an 86-year-old lady with a history of hypertension, COPD, chronic prednisone use for polymyalgia rheumatica, atrial fibrillation on no anticoagulation. #1 fall Doesn't appear that this was syncopal episode. The patient does have mildly elevated troponin but her symptoms are very atypical for acute [place]. We'll monitor on telemetry, repeat troponin. Will have physical and occupational therapy evaluated the patient is not continue with the stay in basic care facility is appropriate #2 atrial fibrillation Currently the EKG per my reading shows sinus rhythm Continue metoprolol Add aspirin with the concern of the elevated troponin We'll not start anticoagulation given the high fall risk. #3 COPD with chronic shortness of breath We'll continue inhalers I do not think the patient has an acute exacerbation #4 polymyalgia rheumatica Continue prednisone #5 back pain with a history of chronic pain with chronic continuous narcotic use and dependency Continue Percocet, Tylenol, Neurontin #6 DVT prophylaxis will be subcutaneous heparin
--- NOTE | 2017-06-23 10:53 | PCM.PN ---
- General Info Date of Service: 06/23/17 Admission Dx/Problem (Free Text): fall, elevated troponin Subjective Update: The patient is an 86-year-old lady who lives in basic care facility. She has a history of atrial fibrillation, chronic steroid use for polymyalgia rheumatica, hypertension, COPD. She has been on chronic Narcotics for chronic back pain, anterior chest pain. She had low-grade temperature. She is complaining of continued pain in the back. The pain is worse with activity. No associated new neurologic deficit. She needs help from the nursing staff to get out of bed. - Review of Systems General: Reports: Fever, Weakness Pulmonary: Reports: Shortness of Breath (Chronic) Cardiovascular: Denies: Chest Pain Gastrointestinal: Denies: Abdominal Pain 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: Denies: Dysuria Neurological: Denies: Confusion - Patient Data Vitals - Most Recent: Last Vital Signs Temp 36.8 C 06/23/17 07:54 Pulse 63 06/23/17 07:54 Resp 20 06/23/17 07:54 BP 123/54 L 06/23/17 07:54 Pulse Ox 98 06/23/17 07:54 Weight - Most Recent: 41.912 kg I&O - Last 24 Hours: Intake & Output 06/22/17 06/23/17 06/23/17 22:59 06:59 14:59 Intake Total 850 600 Output Total 650 400 600 Balance 200 -400 0 Lab Results Last 24 Hours: Laboratory Results - last 24 hr 06/22/17 06/22/17 06/23/17 Range/Units 15:40 16:23 06:12 WBC 6.6 (5.0-10.0) 10^3/uL RBC 3.96 L (4.2-5.4) 10^6/uL Hgb 13.1 (12.0-16.0) g/dL Hct 40.0 (37.0-47.0) % MCV 101.0 H (80-100) fL MCH 33.1 (27.0-34.0) pg MCHC 32.8 L (33.0-35.0) g/dL Plt Count 188 (150-450) 10^3/uL Neut % (Auto) 61.3 (42.2-75.2) % Lymph % (Auto) 24.7 (20.5-50.1) % [place] % (Auto) 11.1 H (2-8) % Eos % (Auto) 2.6 (1.0-3.0) % Baso % (Auto) 0.3 (0.0-1.0) % Sodium (135-145) mmol/L Potassium (3.6-5.0) mmol/L Chloride (101-111) mmol/L Carbon Dioxide (21.0-31.0) mmol/L Anion Gap BUN (7-18) mg/dL Creatinine (0.6-1.3) mg/dL Est Cr Clr Drug Dosing mL/min Estimated GFR (MDRD) Glucose (74-105) mg/dL Calcium (8.4-10.2) mg/dl Troponin I 0.07 H* (0.00-0.02) ng/ml Urine Color Yellow (YELLOW) Urine Appearance Cloudy (CLEAR) Urine pH 7.0 (5.0-9.0) Ur Specific [place] 1.020 (1.005-1.030) Urine Protein 30 H (NEGATIVE) Urine Glucose (UA) Negative (NEGATIVE) Urine Ketones Trace H (NEGATIVE) Urine Occult Blood Negative (NEGATIVE) Urine Nitrite Negative (NEGATIVE) Urine Bilirubin Negative (NEGATIVE) Urine Urobilinogen 2.0 H (0.2-1.0) mg/dL Ur Leukocyte Esterase Trace H (NEGATIVE) Urine RBC 0-5 /HPF Urine WBC 5-10 H (0-5/HPF) /HPF Ur Epithelial Cells Moderate H /HPF Urine Bacteria Many H (0-FEW/HPF) /HPF Urine Mucus Few H /LPF 06/23/17 Range/Units 06:12 WBC (5.0-10.0) 10^3/uL RBC (4.2-5.4) 10^6/uL Hgb (12.0-16.0) g/dL Hct (37.0-47.0) % MCV (80-100) fL MCH (27.0-34.0) pg MCHC (33.0-35.0) g/dL Plt Count (150-450) 10^3/uL Neut % (Auto) (42.2-75.2) % Lymph % (Auto) (20.5-50.1) % [place] % (Auto) (2-8) % Eos % (Auto) (1.0-3.0) % Baso % (Auto) (0.0-1.0) % Sodium 136 (135-145) mmol/L Potassium 4.5 (3.6-5.0) mmol/L Chloride 99 L (101-111) mmol/L Carbon Dioxide 28.0 (21.0-31.0) mmol/L Anion Gap 13.5 BUN 17 (7-18) mg/dL Creatinine 0.5 L (0.6-1.3) mg/dL Est Cr Clr Drug Dosing 51.46 mL/min Estimated GFR (MDRD) > 60 Glucose 86 (74-105) mg/dL Calcium 8.9 (8.4-10.2) mg/dl Troponin I 0.04 H* (0.00-0.02) ng/ml Urine Color (YELLOW) Urine Appearance (CLEAR) Urine pH (5.0-9.0) Ur Specific [place] (1.005-1.030) Urine Protein (NEGATIVE) Urine Glucose (UA) (NEGATIVE) Urine Ketones (NEGATIVE) Urine Occult Blood (NEGATIVE) Urine Nitrite (NEGATIVE) Urine Bilirubin (NEGATIVE) Urine Urobilinogen (0.2-1.0) mg/dL Ur Leukocyte Esterase (NEGATIVE) Urine RBC /HPF Urine WBC (0-5/HPF) /HPF Ur Epithelial Cells /HPF Urine Bacteria (0-FEW/HPF) /HPF Urine Mucus /LPF Med Orders - Current: Current Medications Acetaminophen (Tylenol Extra Strength) 500 mg PO Q8H PRN PRN Reason: Pain Last Admin: 06/23/17 08:15 Dose: 500 mg Alprazolam (Xanax) 0.5 mg PO BEDTIME [facility] Last Admin: 06/22/17 20:34 Dose: 0.5 mg Aspirin (Aspirin) 81 mg PO WITHBREAKFAST [facility] Last Admin: 06/23/17 07:45 Dose: 81 mg Diltiazem HCl (Cardizem Cd) 240 mg PO DAILY@1999 [facility] Last Admin: 06/22/17 20:29 Dose: 240 mg Furosemide (Lasix) 20 mg PO Q48H [facility] Last Admin: 06/23/17 08:15 Dose: 20 mg Gabapentin (Neurontin) 300 mg PO TID [facility] Last Admin: 06/23/17 09:02 Dose: 300 mg Heparin Sodium (Porcine) (Heparin Sodium) 5,000 units SUBCUT Q8HR [facility] Last Admin: 06/23/17 05:26 Dose: 5,000 units Levofloxacin (Levaquin) 250 mg PO Q24H [facility] Last Admin: 06/22/17 16:44 Dose: 250 mg Lidocaine (Lidoderm 5%) 700 mg TOP DAILY [facility] Metoprolol Succinate (Toprol Xl) 50 mg PO DAILY [facility] Last Admin: 06/23/17 09:03 Dose: Not Given Miscellaneous Information (Remove Patch) 1 ea TRDERM BEDTIME [facility] Multivitamins/Minerals (I-Kathryn) 2 each PO DAILY [facility] Last Admin: 06/23/17 09:01 Dose: 2 each (Budesonide/Formoterol 2 Puff)* Pt Owm Tim*-Sjs 2 puff INH BID [facility] Last Admin: 06/23/17 09:04 Dose: 2 puff Ondansetron HCl (Zofran Odt) 4 mg PO Q4H PRN PRN Reason: nausea, able to take PO Oxycodone/Acetaminophen (Percocet 325-5 Mg) 1 tab PO Q6H PRN PRN Reason: Pain Last Admin: 06/23/17 05:26 Dose: 1 tab Polyethylene Glycol (Miralax) 17 gm PO DAILY [facility] Last Admin: 06/23/17 09:05 Dose: 17 gm Potassium Chloride (Klor-Con 10) 20 meq PO Q48H [facility] Last Admin: 06/23/17 09:12 Dose: 20 meq Prednisone (Prednisone) 5 mg PO DAILY [facility] Last Admin: 06/23/17 09:02 Dose: 5 mg Ropinirole HCl (Requip) 0.25 mg PO BEDTIME [facility] Last Admin: 06/22/17 20:35 Dose: 0.25 mg Senna/Docusate Sodium (Senna Plus) 1 tab PO BID [facility] Last Admin: 06/23/17 09:02 Dose: 1 tab Sodium Chloride (Saline Flush) 10 ml FLUSH ASDIRECTED PRN PRN Reason: Keep Vein Open Discontinued Medications Alprazolam (Xanax) mg PO DAILY [facility] Aspirin (Aspirin) 324 mg PO ONETIME ONE Stop: 06/22/17 10:41 Last Admin: 06/22/17 10:44 Dose: 324 mg Diltiazem HCl (Cardizem Cd) mg PO DAILY [facility] Furosemide (Lasix) 20 mg PO DAILY [facility] Metoprolol Succinate (Toprol Xl) mg PO DAILY [facility] Metoprolol Succinate (Toprol Xl) 50 mg PO DAILY [facility] Morphine Sulfate (Morphine) 1 mg IVPUSH ONETIME ONE Stop: 06/22/17 09:34 Last Admin: 06/22/17 09:43 Dose: 1 mg Potassium Chloride (Klor-Con 10) 40 meq PO ONETIME ONE Stop: 06/22/17 15:48 Last Admin: 06/22/17 16:23 Dose: 40 meq Potassium Chloride (Klor-Con 10) 40 meq PO ONETIME ONE Stop: 06/22/17 18:01 Potassium Chloride (Klor-Con 10) 40 meq PO ONETIME ONE Stop: 06/22/17 22:01 Last Admin: 06/22/17 22:07 Dose: 40 meq Sodium Chloride (Saline Flush) 10 ml FLUSH ASDIRECTED PRN PRN Reason: Keep Vein Open Last Admin: 06/22/17 09:43 Dose: 10 ml - Exam Quality Assessment: Supplemental Oxygen General: Alert, Oriented Lungs: Normal Respiratory Effort, Decreased Breath Sounds Cardiovascular: Regular Rate Extremities: No Pedal Edema - Problem List & Annotations (1) Fall SNOMED Code(s): 1077669 Code(s): W19.XXXA - UNSPECIFIED FALL, INITIAL ENCOUNTER Status: Chronic Current Visit: Yes Qualifiers: Encounter type: initial encounter Qualified Code(s): W19.XXXA - Unspecified fall, initial encounter (2) Atrial fibrillation SNOMED Code(s): 83739066 Code(s): I48.91 - UNSPECIFIED ATRIAL FIBRILLATION Status: Chronic Current Visit: No (3) COPD (chronic obstructive pulmonary disease) SNOMED Code(s): 57569668 Code(s): J44.9 - CHRONIC OBSTRUCTIVE PULMONARY DISEASE, UNSPECIFIED Status : Chronic Current Visit: No - Problem List Review Problem List Initiated/Reviewed/Updated: Yes - My Orders Last 24 Hours: My Active Orders 06/22/17 12:18 OT Evaluation and Treatment [CONS] Routine PT Evaluation and Treatment [CONS] Routine 06/22/17 15:40 CULTURE URINE [RM] Routine 06/22/17 16:30 Levofloxacin [Levaquin] 250 mg PO Q24H 06/22/17 20:00 Diltiazem [Cardizem CD] 240 mg PO DAILY@199906/22/17 21:00 ALPRAZolam [Xanax] 0.5 mg PO BEDTIME 06/23/17 08:00 Furosemide [Lasix] 20 mg PO Q48H Metoprolol Succinate [Toprol XL] 50 mg PO DAILY 06/23/17 09:00 Potassium Chloride [Klor-Con 10] 20 meq PO Q48H 06/23/17 10:34 Sales Department Clerk Discontinue [Cardiac Monitoring Discontinue] [RC] Click to Edit 06/23/17 21:00 Remove Patch 1 gilberto MADISNO BEDTIME 06/24/17 09:00 Lidocaine 5% [Lidoderm 5%] 700 mg TOP DAILY - Plan Plan:: The patient is an 86-year-old lady with a history of hypertension, COPD, chronic prednisone use for polymyalgia rheumatica, atrial fibrillation on no anticoagulation. #1 fall Doesn't appear that this was syncopal episode. The patient does have mildly elevated troponin but her symptoms are very atypical for acute VT. No significant arrhythmia on telemetry, repeat troponins are coming down. Can stop telemetry Will have physical and occupational therapy evaluate the patient if she is able to continue to stay in basic care facility #2 atrial fibrillation Continue metoprolol Continue aspirin We'll not start anticoagulation given the high fall risk. #3 COPD, prior lung resection for lung cancer with chronic shortness of breath We'll continue inhalers I do not think the patient has an acute exacerbation #4 polymyalgia rheumatica Continue prednisone #5 back pain with a history of chronic pain with chronic continuous narcotic use and dependency Continue Percocet, Tylenol, Neurontin Add Lidoderm patch #6 urinary tract infection Start levofloxacin #7 hypokalemia Was replaced recheck in am #8 DVT prophylaxis will be with subcutaneous heparin
[2017-06-23] MEDS: Lidocaine 5% 700 MG Patch TOP SCH (11:41)
[2017-06-23] MEDS: Levofloxacin 250 MG Tab PO SCH (16:16)
[2017-06-23] MEDS: rOPINIRole 0.25 MG Tab PO SCH (21:06)
[2017-06-23] MEDS: ALPRAZolam 0.5 MG Tab PO SCH (21:06)
[2017-06-23] MEDS: Diltiazem 240 MG Cap.CD PO SCH (21:07)
[2017-06-23] MEDS: Remove Patch LIDODERM TRDERM SCH (21:08)
[2017-06-24] MEDS: Acetaminophen/oxyCODONE 325-5 MG Tab PO PRN ×3 (06:36→21:17)
[2017-06-24] MEDS: Heparin Sodium 5,000 Units/ML Vial SUBCUT SCH ×3 (06:39→21:18)
[2017-06-24 07:08] LABS: CHLORIDE,CL 97 mmol/L (101-111); SODIUM,NA 134 mmol/L (135-145)
[2017-06-24] MEDS: Lidocaine 5% 700 MG Patch TOP SCH (09:26)
[2017-06-24] MEDS: Aspirin 81 MG Tab.Chew PO SCH (09:42)
[2017-06-24] MEDS: Metoprolol Succinate 50 MG Tab.ER PO SCH (09:42)
[2017-06-24] MEDS: Gabapentin 300 MG Cap PO SCH ×3 (09:42→21:16)
[2017-06-24] MEDS: Lutein/Minerals/Vit A,C & E Tab PO SCH (09:42)
[2017-06-24] MEDS: predniSONE 5 MG Tab PO SCH (09:42)
[2017-06-24] MEDS: Polyethylene Glycol 3350 Powder 17 GM Packet PO SCH (09:43)
[2017-06-24] MEDS: Acetaminophen 500 MG Tab PO PRN (09:50)
[2017-06-24] MEDS ORDERED: fentaNYL 12 MCG/HR Transdermal Patch TRDERM SCH (11:00)
--- NOTE | 2017-06-24 11:07 | PCM.PN ---
- General Info Date of Service: 06/24/17 Admission Dx/Problem (Free Text): fall, elevated troponin Subjective Update: The patient is an 86-year-old lady who lives in basic care facility. She has a history of atrial fibrillation, chronic steroid use for polymyalgia rheumatica, hypertension, COPD. She has been on chronic Narcotics for chronic back pain, anterior chest pain. She is complaining of continued pain in the back. The pain is worse with activity. No associated new neurologic deficit. she is weak. She needs help from the nursing staff to get out of bed. - Review of Systems General: Reports: Weakness. Denies: Fever Pulmonary: Denies: Shortness of Breath Cardiovascular: Denies: Chest Pain Gastrointestinal: Denies: Abdominal Pain Musculoskeletal: Reports: Back Pain - Patient Data Vitals - Most Recent: Last Vital Signs Temp 36.9 C 06/24/17 08:32 Pulse 72 06/24/17 09:42 Resp 18 06/24/17 08:32 BP 143/50 H 06/24/17 09:42 Pulse Ox 95 06/24/17 08:32 Weight - Most Recent: 41.912 kg I&O - Last 24 Hours: Intake & Output 06/23/17 06/24/17 06/24/17 22:59 06:59 14:59 Intake Total 375 200 Output Total 1250 800 Balance -875 -600 Lab Results Last 24 Hours: Laboratory Results - last 24 hr 06/24/17 06/24/17 Range/Units 06:15 06:15 WBC 6.9 (5.0-10.0) 10^3/uL RBC 4.02 L (4.2-5.4) 10^6/uL Hgb 13.2 (12.0-16.0) g/dL Hct 40.2 (37.0-47.0) % MCV 100.0 (80-100) fL MCH 32.8 (27.0-34.0) pg MCHC 32.8 L (33.0-35.0) g/dL Plt Count 191 (150-450) 10^3/uL Neut % (Auto) 57.5 (42.2-75.2) % Lymph % (Auto) 27.0 (20.5-50.1) % [place] % (Auto) 12.4 H (2-8) % Eos % (Auto) 2.8 (1.0-3.0) % Baso % (Auto) 0.3 (0.0-1.0) % Sodium 134 L (135-145) mmol/L Potassium 4.0 (3.6-5.0) mmol/L Chloride 97 L (101-111) mmol/L Carbon Dioxide 28.0 (21.0-31.0) mmol/L Anion Gap 13.0 BUN 19 H (7-18) mg/dL Creatinine 0.6 (0.6-1.3) mg/dL Est Cr Clr Drug Dosing 42.88 mL/min Estimated GFR (MDRD) > 60 Glucose 85 (74-105) mg/dL Calcium 9.0 (8.4-10.2) mg/dl Med Orders - Current: Current Medications Acetaminophen (Tylenol Extra Strength) 500 mg PO Q8H PRN PRN Reason: Pain Last Admin: 06/24/17 09:50 Dose: 500 mg Alprazolam (Xanax) 0.5 mg PO BEDTIME [facility] Last Admin: 06/23/17 21:06 Dose: 0.5 mg Aspirin (Aspirin) 81 mg PO WITHBREAKFAST [facility] Last Admin: 06/24/17 09:42 Dose: 81 mg Diltiazem HCl (Cardizem Cd) 240 mg PO DAILY@1999 [facility] Last Admin: 06/23/17 21:07 Dose: 240 mg Furosemide (Lasix) 20 mg PO Q48H [facility] Last Admin: 06/23/17 08:15 Dose: 20 mg Gabapentin (Neurontin) 300 mg PO TID [facility] Last Admin: 06/24/17 09:42 Dose: 300 mg Heparin Sodium (Porcine) (Heparin Sodium) 5,000 units SUBCUT Q8HR [facility] Last Admin: 06/24/17 06:39 Dose: 5,000 units Levofloxacin (Levaquin) 250 mg PO Q24H [facility] Last Admin: 06/23/17 16:16 Dose: 250 mg Lidocaine (Lidoderm 5%) 700 mg TOP DAILY [facility] Last Admin: 06/24/17 09:26 Dose: 700 mg Metoprolol Succinate (Toprol Xl) 50 mg PO DAILY [facility] Last Admin: 06/24/17 09:42 Dose: 50 mg Miscellaneous Information (Remove Patch) 1 ea TRDERM BEDTIME [facility] Last Admin: 06/23/17 21:08 Dose: Not Given Multivitamins/Minerals (I-Kathryn) 2 each PO DAILY [facility] Last Admin: 06/24/17 09:42 Dose: 2 each (Budesonide/Formoterol 2 Puff)* Pt Owm Tim*-Sjs 2 puff INH BID [facility] Last Admin: 06/24/17 09:43 Dose: Not Given Ondansetron HCl (Zofran Odt) 4 mg PO Q4H PRN PRN Reason: nausea, able to take PO Oxycodone/Acetaminophen (Percocet 325-5 Mg) 1 tab PO Q6H PRN PRN Reason: Pain Last Admin: 06/24/17 06:36 Dose: 1 tab Polyethylene Glycol (Miralax) 17 gm PO DAILY [facility] Last Admin: 06/24/17 09:43 Dose: 17 gm Potassium Chloride (Klor-Con 10) 20 meq PO Q48H [facility] Last Admin: 06/23/17 09:12 Dose: 20 meq Prednisone (Prednisone) 5 mg PO DAILY [facility] Last Admin: 06/24/17 09:42 Dose: 5 mg Ropinirole HCl (Requip) 0.25 mg PO BEDTIME [facility] Last Admin: 06/23/17 21:06 Dose: 0.25 mg Senna/Docusate Sodium (Senna Plus) 1 tab PO BID [facility] Last Admin: 06/24/17 09:42 Dose: 1 tab Sodium Chloride (Saline Flush) 10 ml FLUSH ASDIRECTED PRN PRN Reason: Keep Vein Open Discontinued Medications Alprazolam (Xanax) mg PO DAILY [facility] Aspirin (Aspirin) 324 mg PO ONETIME ONE Stop: 06/22/17 10:41 Last Admin: 06/22/17 10:44 Dose: 324 mg Diltiazem HCl (Cardizem Cd) mg PO DAILY [facility] Furosemide (Lasix) 20 mg PO DAILY [facility] Metoprolol Succinate (Toprol Xl) mg PO DAILY [facility] Metoprolol Succinate (Toprol Xl) 50 mg PO DAILY [facility] Morphine Sulfate (Morphine) 1 mg IVPUSH ONETIME ONE Stop: 06/22/17 09:34 Last Admin: 06/22/17 09:43 Dose: 1 mg Potassium Chloride (Klor-Con 10) 40 meq PO ONETIME ONE Stop: 06/22/17 15:48 Last Admin: 01/20/18 16:23 Dose: 40 meq Potassium Chloride (Klor-Con 10) 40 meq PO ONETIME ONE Stop: 06/22/17 18:01 Potassium Chloride (Klor-Con 10) 40 meq PO ONETIME ONE Stop: 06/22/17 22:01 Last Admin: 06/22/17 22:07 Dose: 40 meq Sodium Chloride (Saline Flush) 10 ml FLUSH ASDIRECTED PRN PRN Reason: Keep Vein Open Last Admin: 06/22/17 09:43 Dose: 10 ml - Exam Quality Assessment: Supplemental Oxygen General: Alert, Oriented Neck: Supple Lungs: Normal Respiratory Effort, Decreased Breath Sounds Cardiovascular: Regular Rate, Regular Rhythm GI/Abdominal Exam: Normal Bowel Sounds, Soft, Non-Tender Back Exam: Normal Inspection, Paraspinal Tenderness Extremities: No Pedal Edema - Problem List & Annotations (1) Fall SNOMED Code(s): 4223281 Code(s): W19.XXXA - UNSPECIFIED FALL, INITIAL ENCOUNTER Status: Chronic Current Visit: Yes Qualifiers: Encounter type: initial encounter Qualified Code(s): W19.XXXA - Unspecified fall, initial encounter (2) Atrial fibrillation SNOMED Code(s): 32095124 Code(s): I48.91 - UNSPECIFIED ATRIAL FIBRILLATION Status: Chronic Current Visit: No (3) COPD (chronic obstructive pulmonary disease) SNOMED Code(s): 19409728 Code(s): J44.9 - CHRONIC OBSTRUCTIVE PULMONARY DISEASE, UNSPECIFIED Status : Chronic Current Visit: No - Problem List Review Problem List Initiated/Reviewed/Updated: Yes - My Orders Last 24 Hours: My Active Orders 06/23/17 10:34 Crocheter Hand Discontinue [Cardiac Monitoring Discontinue] [RC] Click to Edit 06/23/17 10:35 Lidocaine 5% [Lidoderm 5%] 700 mg TOP DAILY 06/23/17 21:00 Remove Patch 1 ea TRDERM BEDTIME - Plan Plan:: The patient is an 86-year-old lady with a history of hypertension, COPD, chronic prednisone use for polymyalgia rheumatica, atrial fibrillation on no anticoagulation. #1 fall Doesn't appear that this was syncopal episode. The patient does have mildly elevated troponin but her symptoms are very atypical for acute AL. No significant arrhythmia on telemetry, repeat troponins are coming down. Will have physical and occupational therapy evaluate the patient if she is able to continue to stay in basic care facility #2 atrial fibrillation Continue metoprolol Continue aspirin We'll not start anticoagulation given the high fall risk. #3 COPD, prior lung resection for lung cancer with chronic shortness of breath We'll continue inhalers I do not think the patient has an acute exacerbation #4 polymyalgia rheumatica Continue prednisone #5 back pain with a history of chronic pain with chronic continuous narcotic use and dependency Continue Percocet, Tylenol, Neurontin continue Lidoderm patch and fentanyl patch #6 urinary tract infection no more fever continue levofloxacin #7 hypokalemia Was replaced #8 DVT prophylaxis will be with subcutaneous heparin
[2017-06-24] MEDS: Levofloxacin 250 MG Tab PO SCH (17:32)
[2017-06-24] MEDS: Diltiazem 240 MG Cap.CD PO SCH (21:16)
[2017-06-24] MEDS: ALPRAZolam 0.5 MG Tab PO SCH (21:16)
[2017-06-24] MEDS: rOPINIRole 0.25 MG Tab PO SCH (21:16)
[2017-06-24] MEDS: Remove Patch LIDODERM TRDERM SCH (21:18)
[2017-06-25] MEDS: Acetaminophen/oxyCODONE 325-5 MG Tab PO PRN ×3 (01:48→10:04)
[2017-06-25] MEDS: Heparin Sodium 5,000 Units/ML Vial SUBCUT SCH (05:59)
[2017-06-25] MEDS: Aspirin 81 MG Tab.Chew PO SCH (08:54)
[2017-06-25] MEDS: Lutein/Minerals/Vit A,C & E Tab PO SCH ×2 (08:55→09:01)
[2017-06-25] MEDS: Polyethylene Glycol 3350 Powder 17 GM Packet PO SCH (08:55)
[2017-06-25] MEDS: Gabapentin 300 MG Cap PO SCH (08:55)
[2017-06-25] MEDS: predniSONE 5 MG Tab PO SCH (08:55)
[2017-06-25] MEDS: Metoprolol Succinate 50 MG Tab.ER PO SCH (08:55)
[2017-06-25] MEDS: Lidocaine 5% 700 MG Patch TOP SCH (08:56)
[2017-06-25] MEDS: Furosemide 20 MG Tab PO SCH (08:58)
[2017-06-25] MEDS: Potassium Chloride 10 MEQ Tab.ER PO SCH (08:58)
--- NOTE | 2017-06-25 10:48 | PCM.DCSUM1 ---
Discharge Summary - Hospital Course Free Text/Narrative:: The patient is an 86-year-old lady with a history of hypertension, COPD, chronic prednisone use for polymyalgia rheumatica, atrial fibrillation on no anticoagulation. #1 fall Doesn't appear that this was syncopal episode. The patient does have mildly elevated troponin but her symptoms were very atypical for acute CT. No significant arrhythmia on telemetry, repeat troponins are coming down. #2 atrial fibrillation Continue metoprolol Continue aspirin We'll not start anticoagulation given the high fall risk. #3 COPD, prior lung resection for lung cancer with chronic shortness of breath We'll continue inhalers I do not think the patient has an acute exacerbation #4 polymyalgia rheumatica Continue prednisone #5 back pain with a history of chronic pain due to T11,T12 compression fx. with chronic continuous narcotic use and dependency Continue Percocet, Tylenol, Neurontin continue Lidoderm patch added fentanyl patch #6 urinary tract infection no more fever treated with levofloxacin #7 hypokalemia Was replaced #8 will be dicharged to [place] - Discharge Data Discharge Date: 06/25/17 Discharge Disposition: DC/Tfer to SNF 03 Condition: Fair - Discharge Diagnosis/Problem(s) (1) Fall SNOMED Code(s): 8359131 ICD Code: W19.XXXA - UNSPECIFIED FALL, INITIAL ENCOUNTER Status: Acute Priority: High Current Visit: Yes Qualifiers: Encounter type: initial encounter Qualified Code(s): W19.XXXA - Unspecified fall, initial encounter (2) Atrial fibrillation SNOMED Code(s): 76401606 ICD Code: I48.91 - UNSPECIFIED ATRIAL FIBRILLATION Status: Chronic Current Visit: No (3) COPD (chronic obstructive pulmonary disease) SNOMED Code(s): 22419433 ICD Code: J44.9 - CHRONIC OBSTRUCTIVE PULMONARY DISEASE, UNSPECIFIED Status : Chronic Current Visit: No - Patient Summary/Data Consults: Consultations 06/22/17 12:18 OT Evaluation and Treatment [CONS] Routine PT Evaluation and Treatment [CONS] Routine - Patient Instructions Diet: Regular Diet as Tolerated Activity: As Tolerated Driving: Do Not Drive Showering/Bathing: May Shower Notify Provider of: Increased Pain Other/Special Instructions: Admit to [facility]. - Discharge Plan Home Medications: Home Meds Budesonide/Formoterol Fumarate [Symbicort 160-4.5 Mcg Inhaler] 2 puff INH BID [History] Calcitonin,Pratts,Synthetic [Miacalcin] 1 spray INH DAILY 05/31/16 [History] Diltiazem [Cardizem CD] 240 mg PO DAILY 05/31/16 [History] Furosemide 20 mg PO DAILY 05/31/16 [History] L Acidophil/B Lactis/B Longum [Florajen3] 460 mg PO DAILY 05/31/16 [History] Metoprolol Succinate [Toprol XL] 50 mg PO 0800 05/31/16 [History] Nitroglycerin [IJP: Nitroglycerin] 1 tab SL ASDIRECTED PRN 05/31/16 [History] Polyethylene Glycol 3350 17 gm PO DAILY 05/31/16 [History] Sennosides/Docusate Sodium [Senna-Docusate Sodium] 1 tab PO BID 05/31/16 [ History] Magnesium Hydroxide [Milk of Magnesia] 30 ml PO DAILY PRN 06/01/16 [History] Propylene Glycol/Peg 400 [Systane 0.3-0.4% Eye Drops] 1 drop EYEBOTH QID [History] Gabapentin [Neurontin] 300 mg PO BID 05/12/17 [History] predniSONE [Prednisone] 5 mg PO DAILY 05/12/17 [History] Calcium Carb/Vitamin D3/Vit K1 [Viactiv Soft Chew] 1 tab PO BID 06/22/17 [ History] ALPRAZolam [Xanax] 0.25 mg PO BEDTIME PRN 06/25/17 [History] Acetaminophen [Acetaminophen Extra Strength] 500 mg PO Q6H PRN 06/25/17 [History ] Acetaminophen [Acetaminophen Extra Strength] 500 mg PO TID 06/25/17 [History] Aspirin [Lo-Dose Aspirin EC] 81 mg PO DAILY 06/25/17 [History] Cholecalciferol (Vitamin D3) [Vitamin D3] 1,000 unit PO DAILY 06/25/17 [History] Lidocaine 5% [Lidoderm 5%] 1 patch TOP DAILY 06/25/17 [History] Lutein/Minerals/Vit A,C & E [I-Kathryn] 1 tab PO DAILY 06/25/17 [History] Ondansetron [Ondansetron ODT] 4 mg PO Q6H PRN 06/25/17 [History] Potassium Chloride [Klor-Con M20] 20 meq PO Q48H 06/25/17 [History] fentaNYL [Duragesic] 1 patch TD Q72H 06/25/17 [History] oxyCODONE 5 mg PO Q6H 06/25/17 [History] rOPINIRole [Requip] 0.25 mg PO BEDTIME 06/25/17 [History] - General Info Date of Service: 06/25/17 Functional Status: Reports: Other (continues to have mcclendon pain, worse with movements) - Review of Systems General: Reports: Weakness Pulmonary: Denies: Shortness of Breath Cardiovascular: Denies: Chest Pain Gastrointestinal: Denies: Abdominal Pain Neurological: Denies: Confusion - Patient Data Vitals - Most Recent: Last Vital Signs Temp 36.6 C 06/25/17 07:38 Pulse 61 06/25/17 08:55 Resp 20 06/25/17 07:38 BP 141/58 H 06/25/17 08:55 Pulse Ox 99 06/25/17 07:38 Weight - Most Recent: 41.912 kg I&O - Last 24 hours: Intake & Output 06/24/17 06/25/17 06/25/17 22:59 06:59 14:59 Intake Total 100 Output Total 400 300 Balance -400 -200 DIOGENES Results - Last 24 hrs: Microbiology 06/22/17 15:40 Urine Culture - Final Urine, Clean Catch Med Orders - Current: Current Medications Acetaminophen (Tylenol Extra Strength) 500 mg PO Q8H PRN PRN Reason: Pain Last Admin: 06/24/17 09:50 Dose: 500 mg Alprazolam (Xanax) 0.5 mg PO BEDTIME [facility] Last Admin: 06/24/17 21:16 Dose: 0.5 mg Aspirin (Aspirin) 81 mg PO WITHBREAKFAST [facility] Last Admin: 06/25/17 08:54 Dose: 81 mg Diltiazem HCl (Cardizem Cd) 240 mg PO DAILY@1999 [facility] Last Admin: 06/24/17 21:16 Dose: 240 mg Fentanyl (Duragesic) 12 mcg TRDERM Q72H [facility] Last Admin: 06/24/17 11:58 Dose: 12 mcg Furosemide (Lasix) 20 mg PO Q48H [facility] Last Admin: 06/25/17 08:58 Dose: 20 mg Gabapentin (Neurontin) 300 mg PO TID [facility] Last Admin: 06/25/17 08:55 Dose: 300 mg Heparin Sodium (Porcine) (Heparin Sodium) 5,000 units SUBCUT Q8HR [facility] Last Admin: 06/25/17 05:59 Dose: 5,000 units Levofloxacin (Levaquin) 250 mg PO Q24H [facility] Last Admin: 06/24/17 17:32 Dose: 250 mg Lidocaine (Lidoderm 5%) 700 mg TOP DAILY [facility] Last Admin: 06/25/17 08:56 Dose: 700 mg Metoprolol Succinate (Toprol Xl) 50 mg PO DAILY [facility] Last Admin: 06/25/17 08:55 Dose: 50 mg Miscellaneous Information (Remove Patch) 1 ea TRDERM BEDTIME [facility] Last Admin: 06/24/17 21:18 Dose: 1 ea Miscellaneous Information (Remove Patch) 1 ea TRDERM Q72H [facility] Multivitamins/Minerals (I-Kathryn) 2 each PO DAILY [facility] Last Admin: 06/25/17 09:01 Dose: Not Given (Budesonide/Formoterol 2 Puff)* Pt Owm Tim*-Sjs 2 puff INH BID [facility] Last Admin: 06/25/17 08:55 Dose: Not Given Ondansetron HCl (Zofran Odt) 4 mg PO Q4H PRN PRN Reason: nausea, able to take PO Oxycodone/Acetaminophen (Percocet 325-5 Mg) 1 tab PO Q4H PRN PRN Reason: Pain Last Admin: 06/25/17 10:04 Dose: 1 tab Polyethylene Glycol (Miralax) 17 gm PO DAILY [facility] Last Admin: 06/25/17 08:55 Dose: Not Given Potassium Chloride (Klor-Con 10) 20 meq PO Q48H [facility] Last Admin: 06/25/17 08:58 Dose: 20 meq Prednisone (Prednisone) 5 mg PO DAILY [facility] Last Admin: 06/25/17 08:55 Dose: 5 mg Ropinirole HCl (Requip) 0.25 mg PO BEDTIME [facility] Last Admin: 06/24/17 21:16 Dose: 0.25 mg Senna/Docusate Sodium (Senna Plus) 1 tab PO BID [facility] Last Admin: 06/25/17 08:56 Dose: Not Given Sodium Chloride (Saline Flush) 10 ml FLUSH ASDIRECTED PRN PRN Reason: Keep Vein Open Discontinued Medications Alprazolam (Xanax) mg PO DAILY [facility] Aspirin (Aspirin) 324 mg PO ONETIME ONE Stop: 06/22/17 10:41 Last Admin: 06/22/17 10:44 Dose: 324 mg Diltiazem HCl (Cardizem Cd) mg PO DAILY [facility] Furosemide (Lasix) 20 mg PO DAILY [facility] Metoprolol Succinate (Toprol Xl) mg PO DAILY [facility] Metoprolol Succinate (Toprol Xl) 50 mg PO DAILY [facility] Morphine Sulfate (Morphine) 1 mg IVPUSH ONETIME ONE Stop: 06/22/17 09:34 Last Admin: 06/22/17 09:43 Dose: 1 mg Oxycodone/Acetaminophen (Percocet 325-5 Mg) 1 tab PO Q6H PRN PRN Reason: Pain Last Admin: 06/24/17 21:17 Dose: 1 tab Potassium Chloride (Klor-Con 10) 40 meq PO ONETIME ONE Stop: 06/22/17 15:48 Last Admin: 06/22/17 16:23 Dose: 40 meq Potassium Chloride (Klor-Con 10) 40 meq PO ONETIME ONE Stop: 06/22/17 18:01 Potassium Chloride (Klor-Con 10) 40 meq PO ONETIME ONE Stop: 06/22/17 22:01 Last Admin: 06/22/17 22:07 Dose: 40 meq Sodium Chloride (Saline Flush) 10 ml FLUSH ASDIRECTED PRN PRN Reason: Keep Vein Open Last Admin: 06/22/17 09:43 Dose: 10 ml - Exam General: Reports: Alert, Oriented Neck: Reports: Supple Lungs: Reports: Normal Respiratory Effort, Decreased Breath Sounds Cardiovascular: Reports: Regular Rate, Regular Rhythm GI/Abdominal Exam: Normal Bowel Sounds, Soft, Non-Tender Extremities: No: Pedal Edema *Q Meaningful Use (DIS) - VTE *Q VTE Criteria *Q: - Stroke *Q Stroke Criteria *Q: - AMI *Q AMI Criteria *Q:
[2017-06-25 11:24] VITALS: BP 179/75
--- NOTE | 2017-06-26 15:32 | EKG ---
06/22/2017 - LEÓN MUNROE - TIME: 9:36 FINDINGS: EKG shows a normal sinus rhythm. There is poor R-wave progression. Borderline T-wave abnormality. [facility] /[id number]
== END 2017-06-25 13:00 ==
LOC: DL.ED 08:53 → UNDOADMOB 10:51 → DL.MS 10:51
PROVIDERS: ADMIT Internal Medicine; ATTEND Internal Medicine
DX: I48.91 Unspecified atrial fibrillation (principal); J44.9 Chronic obstructive pulmonary disease, unspecified; M35.3 Polymyalgia rheumatica; I10 Essential (primary) hypertension; G89.29 Other chronic pain; M54.9 Dorsalgia, unspecified; N39.0 Urinary tract infection, site not specified; E87.6 Hypokalemia; S09.90XA Unspecified injury of head, initial encounter; Z79.82 Long term (current) use of aspirin; Z79.899 Other long term (current) drug therapy; Z88.0 Allergy status to penicillin; Z88.2 Allergy status to sulfonamides; W01.198A Fall on same level from slipping, tripping and stumbling with subsequent striking against other object, initial encounter
CPT/HCPCS: 36415; 70450; 71250; 72125; 74176; 80048; 80053; 81001; 82550; 82553; 84484; 85025; 87086; 93005; 93010; 96372; 96374; 99217; 99218; 99225; 99285; A9270; G0378; J1644; J2270; J7050